=== PATIENT | male | born 1965 | race Caucasian/White ===

== ENCOUNTER 2018-08-02 02:53 | Emergency (ER) | payer OTHER ==
[~2018-08-02] VITALS: Ht 180.3 cm; Wt 92.1 kg
[~2018-08-02 02:53] MED LIST: ASPIR 8181 MG PO; COUMADIN 5 MG TA5 M1 PO; COZAAR 25 MG TA25 M2 PO; EFFIENT10 MG PO; LASIX 40 MG TAB40 M2 PO; LIPITOR40 MG PO; METOPROLOL TART25 MG PO; NITROGLYCERIN0.4 MG SUBLING; NORCO 5-325 TA1 EACH PO; PACERONE 200 M200 M1 PO; PROTONIX40 M4 PO
[2018-08-02] MEDS ORDERED: ASPIR 8181 MG PO (03:14)
[2018-08-02] MEDS ORDERED: TYLENOL325 MG PO (03:14)
[2018-08-02] MEDS ORDERED: LIPITOR80 MG PO (03:14)
[2018-08-02] MEDS ORDERED: FOLIC ACID1 MG PO (03:15)
[2018-08-02] MEDS ORDERED: CARVEDILOL3.125 MG PO (03:15)
[2018-08-02] MEDS ORDERED: ROBAXIN 750 MG750 M1 PO (03:16)
[2018-08-02] MEDS ORDERED: NITROGLYCERIN0.4 MG SUBLING (03:16)
[2018-08-02] MEDS ORDERED: SPIRONOLACTONE25 M1 PO (03:17)
[2018-08-02] MEDS ORDERED: OXYCODONE HCL 55 MG PO (03:17)
[2018-08-02] MEDS ORDERED: MIRALAX17 GM PO (03:17)
[2018-08-02] MEDS ORDERED: SENNA8.6 MG PO (03:17)
[2018-08-02] MEDS ORDERED: VITAMIN B-1100 M1 PO (03:18)
[2018-08-02 03:26] LABS: HEMATOCRIT 39.2 % (42.0-52.0); HEMOGLOBIN 13.1 gm/dL (14.0-18.0); MCHC 33.4 g/dL (28.0-37.0); MCV 92.8 fL (80.0-100.0); PLATELET COUNT 239 thou/uL (150-400); RBC 4.22 mil/uL (4.50-6.00); RDW 13.3 % (10.5-14.5); WBC 8.6 thou/uL (4.0-11.0)
[2018-08-02 03:31] LABS: ANION GAP 10 mmol/L (7-16); BUN 17 mg/dL (7-18); CALCIUM 8.8 mg/dL (8.5-10.1); CHLORIDE 105 mmol/L (98-107); CO2 27 mmol/L (21-32); CREATININE 0.9 mg/dL (0.7-1.3); GLUCOSE 121 mg/dL (74-106); POTASSIUM 4.2 mmol/L (3.5-5.1); SODIUM 142 mmol/L (136-145)
[2018-08-02 03:41] LABS: URINE BILIRUBIN NEGATIVE (Negative); URINE BLOOD NEGATIVE (Negative); URINE CLARITY CLEAR; URINE COLOR YELLOW; URINE GLUCOSE-RANDOM* NEGATIVE (Negative); URINE KETONES NEGATIVE (Negative); URINE LEUKOCYTES-REFLEX NEGATIVE (Negative); URINE NITRITE-REFLEX NEGATIVE (Negative); URINE PROTEIN (DIPSTICK) NEGATIVE (Negative); URINE SPECIFIC GRAVITY >= 1.030 (1.005-1.035); URINE UROBILINOGEN 0.2 E.U./dl (0.2-1.0)
[2018-08-02 03:42] LABS: ALBUMIN 3.2 g/dL (3.4-5.0); DIRECT BILIRUBIN < 0.1 mg/dL (<0.1-0.3); LIPASE 178 U/L (73-393); SGOT 28 U/L (15-37); SGPT 58 U/L (30-65); TOTAL BILIRUBIN 0.4 mg/dL (<0.1-1.0); TOTAL PROTEIN 6.4 g/dL (6.4-8.2); TROPONIN-I <0.06 ng/mL (<0.06)
[2018-08-02 03:52] LABS: AMP/METHAMP Negative (Negative); BARBITURATES Negative (Negative); BENZODIAZEPINES Negative (Negative); COCAINE Negative (Negative); METHADONE Negative (Negative); OPIATES POSITIVE (Negative); PCP Negative (Negative)
[2018-08-02 04:13] LABS: ABSOLUTE NEUTROPHILS 5.1 thou/uL (1.4-8.2)
[2018-08-02 04:15] LABS: PLATELET ESTIMATE NORMAL
[2018-08-02 05:56] VITALS: BP 112/67
--- NOTE | 2018-08-04 22:24 | EKG ---
[place] [address] [email or web address] [place] [address] ELECTROCARDIOGRAM REPORT Name: BRUCE BARRIOS [facility] [id number] ������������������ Admission: 08/02/18 ������������������ Attend Phys: Discharge: 08/02/18 ������������������ Date of : 69 Report #: [id number] ����������������������������������������������������������������� [id number] THIS REPORT FOR: //name// [facility] ED Test Date: 2018-08-02 Test Time: 03:01:02 Pat Name: BRUCE BARRIOS Department: Room: Gender: Cardiovascular Physician Assistant: [facility] : 1965 Requested By: Enriqueta Mcconnell Order Number: [id number] MD: Khoa Guy Measurements Intervals [place] Rate: 78 P: 67 MN: 203 QRS: -3 QRSD: 108 T: 175 QT: 360 QTc: 411 Interpretive Statements Sinus rhythm Borderline prolonged [place] interval Probable left atrial enlargement Incomplete left bundle branch block LVH with secondary repolarization abnormality Anterior ST elevation, probably due to LVH Electronically Signed On 08-04-2018 22:24:41 CDT by Khoa Guy [email or web address] ��������������������������������������������� <ELECTRONICALLY SIGNED> ���������������������������������������� By: Khoa Guy MD ��������������������������������������������� 08/04/184 0 0 Khoa Guy MD /JARRED
== END 2018-08-02 05:59 | disposition home or self-care (01) ==
LOC: ER 02:53
PROVIDERS: Emergency Medicine
DX: R07.89 Other chest pain (principal); F17.200 Nicotine dependence, unspecified, uncomplicated

== ENCOUNTER 2019-02-17 16:09 | Inpatient (IN) | payer OTHER ==
[~2019-02-17] VITALS: Ht 180.3 cm; Wt 103.4 kg
[~2019-02-17 16:09] MED LIST changes: +CARVEDILOL3.125 MG PO; +FOLIC ACID1 MG PO; +LIPITOR80 MG PO; +MIRALAX17 GM PO; +OXYCODONE HCL 55 MG PO; +ROBAXIN 750 MG750 M1 PO; +SENNA8.6 MG PO; +SPIRONOLACTONE25 M1 PO; +TYLENOL325 MG PO; +VITAMIN B-1100 M1 PO
[2019-02-17 16:47] VITALS: BP 134/89
[2019-02-17 16:56] LABS: ABSOLUTE NEUTROPHILS 6.4 thou/uL (1.4-8.2); BASOPHILS 0.3 % (0.0-2.0); EOSINOPHILS 2.8 % (0.0-3.0); HEMATOCRIT 46.9 % (42.0-52.0); HEMOGLOBIN 15.6 gm/dL (14.0-18.0); LYMPHOCYTES 22.1 % (24.0-44.0); MCH 30.8 pg (26.0-34.0); MCHC 33.2 g/dL (28.0-37.0); MCV 92.7 fL (80.0-100.0); MONOCYTES 7.8 % (1.0-8.0); PLATELET COUNT 230 thou/uL (150-400); RBC 5.06 mil/uL (4.50-6.00); RDW 14.2 % (10.5-14.5); WBC 9.5 thou/uL (4.0-11.0)
[2019-02-17 17:05] LABS: ANION GAP 9 mmol/L (7-16); BUN 13 mg/dL (7-18); CALCIUM 9.7 mg/dL (8.5-10.1); CHLORIDE 106 mmol/L (98-107); CO2 26 mmol/L (21-32); GLUCOSE 110 mg/dL (74-106); POTASSIUM 4.3 mmol/L (3.5-5.1); SODIUM 141 mmol/L (136-145)
[2019-02-17] MEDS ORDERED: COZAAR 25 MG TA25 M1 PO (17:09)
[2019-02-17 17:15] LABS: ALBUMIN 3.6 g/dL (3.4-5.0); SGOT 18 U/L (15-37); SGPT 28 U/L (30-65); TOTAL BILIRUBIN 1.5 mg/dL (<0.1-1.0); TOTAL PROTEIN 7.5 g/dL (6.4-8.2); TROPONIN-I <0.06 ng/mL (<0.06)
[2019-02-17 19:50] VITALS: BP 111/66
[2019-02-17 19:58] VITALS: BP 124/80
[2019-02-17 20:20] VITALS: BP 124/86
[2019-02-17] MEDS ORDERED: PRADAXA150 MG PO (22:53)
[2019-02-18] VITALS (14 sets, daily range): BP systolic 115–131; BP diastolic 62–97
[2019-02-18 00:57] LABS: CHOLESTEROL 261 mg/dL (<200); HDL CHOLESTEROL 36 mg/dL (>40); LDL CHOLESTEROL 193 mg/dL (<100); TC:HDL 7.3 Ratio (Not establshd); TRIGLYCERIDE 162 mg/dL (<150); VLDL 32 mg/dL (<40)
[2019-02-18 01:04] LABS: SERUM ASSESSMENT Clear
[2019-02-18 04:35] LABS: HEMATOCRIT 43.9 % (42.0-52.0); HEMOGLOBIN 14.5 gm/dL (14.0-18.0); MCH 30.7 pg (26.0-34.0); MCV 92.9 fL (80.0-100.0); RBC 4.73 mil/uL (4.50-6.00); RDW 14.3 % (10.5-14.5)
[2019-02-18 05:01] LABS: ANION GAP 10 mmol/L (7-16); BUN 11 mg/dL (7-18); CALCIUM 9.4 mg/dL (8.5-10.1); CHLORIDE 105 mmol/L (98-107); CO2 25 mmol/L (21-32); GLUCOSE 135 mg/dL (74-106); POTASSIUM 3.8 mmol/L (3.5-5.1); SODIUM 140 mmol/L (136-145); TROPONIN-I <0.06 ng/mL (<0.06)
--- NOTE | 2019-02-18 05:14 | NUR ---
PT ARRIVED ON UNIT AROUND 2014. PT ADMISSION AND ASSESSMENT CHARTED. PT C/O PRESSURE IN CHEST UPON MOVEMENT GAVE PAIN MEDICATION AND PARTIAL RELIEF PROVIDED. PT IS SLEEPING AND WILL CONTINUE TO MONITOR PER POC.
--- NOTE | 2019-02-18 08:40 | EKG ---
[address] [address] ELECTROCARDIOGRAM REPORT Name: BRUCE BARRIOS Room #: 215-P ADM IN M.R.#: [id number] Admission: 02/17/19 Attend Phys: Perez Howell MD Discharge: Date of : 69 Report #: [id number] THIS REPORT FOR: //name// [facility] ED Test Date: 2019-02-17 Test Time: 18:31:20 Pat Name: BRUCE BARRIOS Department: Room: 215 Gender: M Machine Engineer: north : 1965 Requested By: Ross Peraza Order Number: [id number] MD: Khoa Guy Measurements Intervals [place] Rate: 84 P: 66 PA: 212 QRS: -61 QRSD: 117 T: 127 QT: 386 QTc: 457 Interpretive Statements Sinus rhythm Prolonged PA interval Left atrial enlargement Incomplete left bundle branch block LVH with secondary repolarization abnormality Compared to ECG 08/02/2018 03:01:02 ST (T wave) deviation no longer present Electronically Signed On 02-18-2019 8:39:51 INDUSTRIAL ANALYST by Khoa Guy [email or web address] <ELECTRONICALLY SIGNED> By: Khoa Guy MD 02/18/19 0839 30 30 Khoa Guy MD /EPI
--- NOTE | 2019-02-18 08:43 | EKG ---
[address] [place] [address] ELECTROCARDIOGRAM REPORT Name: SOPHIEBRUCE Chavez Room #: 215-P ADM IN M.R.#: [id number] Admission: 02/17/19 Attend Phys: Perez Howell MD Discharge: Date of : 69 Report #: [id number] THIS REPORT FOR: //name// [facility] ED Test Date: 2019-02-17 Test Time: 16:12:40 Pat Name: BRUCE BARRIOS Department: Room: 215 Gender: M Electronics Processor: jacobo : 1965 Requested By: Abisai Arguelles Order Number: [id number] MD: Khoa Guy Measurements Intervals [place] Rate: 91 P: 67 VT: 224 QRS: -49 QRSD: 117 T: 135 QT: 373 QTc: 459 Interpretive Statements Sinus rhythm Multiple ventricular premature complexes Prolonged [place] interval Left atrial enlargement Incomplete left bundle branch block LVH with secondary repolarization abnormality Anterior ST elevation, probably due to LVH Compared to ECG 08/02/2018 03:01:02 Ventricular premature complex(es) now present ST (T wave) deviation still present Electronically Signed On 02-18-2019 8:42:47 HAMMER MILL OPERATOR by Khoa Guy [email or web address] <ELECTRONICALLY SIGNED> By: Khoa Guy MD 02/18/19 0842 161 161 Khoa Guy MD /EPI
--- NOTE | 2019-02-18 10:07 | 2DMMODE ---
[facility] [address] [place] [address] 2 D/M-MODE ECHOCARDIOGRAM Name: BRUCE BARRIOS Room #: 215-P ADM IN M.R.#: [id number] Admission: 02/17/19 Attend Phys: Perez Howell MD Discharge: Date of : 69 Report #: [id number] THIS REPORT FOR: //name// APPROVED REPORT Study performed: 02/18/2019 09:28:32 EXAM: Comprehensive 2D, Doppler, and color-flow Echocardiogram Patient Location: Echo lab Room #: [facility] Status: routine BSA: 2.21 HR: 99 bpm BP: 115/80 mmHg Rhythm: Tachycardia Other Information Study Quality: Good Indications CAD Cardiomyopathy Chest Pain 2D Dimensions RVDd: 34.96 mm IVSd: 5.23 (7-11mm) LVOT Diam: 23.57 (18-24mm) LVDd: 64.87 mm PWd: 11.29 (7-11mm) Ascending Ao: 31.97 (22-36mm) LVDs: 58.03 (25-40mm) Aortic Root: 32.39 mm IVC: 15.00 mm Volumes Left Atrial Volume (Systole) Single Plane 4CH: 101.62 mL Single Plane 2CH: 76.65 mL LA ESV Index: 44.00 mL/m2 Aortic Valve AoV Peak Dale.: 1.04 m/s AO Peak Gr.: 4.34 mmHg LVOT Max P.52 mmHg LVOT Max V: 0.94 m/s AMINTA Vmax: 3.93 cm2 Pulmonary Valve PV Peak Dale.: 0.73 m/s PV Peak Gr.: 2.16 mmHg [facility] [address] [place] [address] 2 D/M-MODE ECHOCARDIOGRAM Name: BRUCE BARRIOS Room #: 215-P ADM IN [facility].#: [id number] Admission: 02/17/19 Attend Phys: Perez Howell MD Discharge: Date of : 69 Report #: [id number] Left Ventricle Left ventricle is dilated. There is severe global hypokinesis of the left ventricle. There is normal left ventricular wall thickness. Left ventricular ejection fraction is severely decreased. LVEF is 20-25%. Grade IV - fixed restrictive diastolic dysfunction pattern. Right Ventricle The right ventricle is normal size. The right ventricular systolic function is normal. Atria Left atrium is dilated. Right atrium is at the upper limits of normal. Aortic Valve The aortic valve is normal in structure. No aortic regurgitation is present. There is no aortic valvular stenosis. Mitral Valve The mitral valve is normal in structure. Mild mitral regurgitation. No evidence of mitral valve stenosis. Tricuspid Valve The tricuspid valve is normal in structure. There is no tricuspid valve regurgitation noted. Pulmonic Valve The pulmonary valve is normal in structure. There is no pulmonic valvular regurgitation. Great Vessels The aortic root is normal in size. IVC is normal in size and collapses >50% with inspiration. Pericardium There is no pericardial effusion. <Conclusion> Left ventricle is dilated. There is normal left ventricular wall thickness. Left ventricular ejection fraction is severely decreased. Grade IV - fixed restrictive diastolic dysfunction pattern. The right ventricle is normal size. Left atrium is dilated. [facility] [address] [place] [address] 2 D/M-MODE ECHOCARDIOGRAM Name: BRUCE BARRIOS Room #: 215-P [facility] IN ..#: [id number] Admission: 02/17/19 Attend Phys: Perez Howell MD Discharge: Date of : 69 Report #: [id number] The aortic valve is normal in structure. Mild mitral regurgitation. <ELECTRONICALLY SIGNED> By: Caleb Shah MD 02/18/19 1007 1007 1007 Caleb Shah MD /INF
[2019-02-18 15:43] LABS: AMP/METHAMP POSITIVE (Negative); BARBITURATES Negative (Negative); BENZODIAZEPINES Negative (Negative); COCAINE Negative (Negative); METHADONE Negative (Negative); OPIATES POSITIVE (Negative); PCP Negative (Negative)
--- NOTE | 2019-02-18 16:35 | CATHLAB ---
[place] [address] [employer] [facility] [place] [address] INVASIVE PROCEDURE REPORT Name: BRUCE BARRIOS Room #: 215-P [facility] IN ..#: [id number] Admission: 02/17/19 Attend Phys: Perez Howell MD Discharge: Date of : 69 Report #: [id number] THIS REPORT FOR: //name// APPROVED REPORT Study performed: 02/18/2019 11:47:49 Patient Details Patient Status: In-Patient Room #: The patient is a 54 year-old male Event Personnel Caleb Shah Acquisition Specialist, Bryan Gannon RN, Camryn Stokes RN RN, Bruce Lambert, Huseyin Torres RTR Scrub Procedures Performed Left Heart Cath w/or w/o Coronaries [id number] [facility] Indication Dyspnea, Cardiomyopathy, Chest pain Risk Factors Hypercholesterolemia, Coronary Artery DiseaseHypertension, Diabetes Tobacco History () Previous Procedures/Diagnoses Previous PCI, Previous NH Procedure Narrative The Right Groin^ was infiltrated with 1% Lidocaine subcutaneous anesthesia. A PINNACLE 4FR Sheath #[id number] sheath was inserted into the RFA^. Coronary angiography was performed using coronary diagnostic catheters. The right coronary system was accessed and visualized with a JR4 catheter. The left coronary system was accessed and visualized with a JL4 catheter. Left ventricular/Aortic Valve gradient assessed via catheter pullback. Hemostasis was obtained with manual pressure following sheath removal without any complications. There was no hematoma. Intraoperative Conscious Sedation Sedation start time: 12.34 Case end Time: 13.05 Fluoro Time: 3.40 minutes [facility] [address] [place] [address] INVASIVE PROCEDURE REPORT Name: BRUCE BARRIOS Room #: 215-P [facility] IN ..#: [id number] Admission: 02/17/19 Attend Phys: Perez Howell MD Discharge: Date of : 69 Report #: [id number] Dose: DAP 4927.00 cGycm2 1276 mGy Contrast Type and Amount: Omnipaque 45 ml Coronary Angiography The patient's coronary anatomy is right dominant. Diagnostic Cath Left Main This is a large caliber vessel, patent with no flow-limiting lesions. LAD This is a moderate size caliber vessel, traversing the anterior wall and wrapping around the apex. There is a patent stent in the proximal LAD, with mild restenosis. There is mild disease in the mid segment of the LAD, 20%. Diagonal 1 This is a small to moderate size caliber vessel, with mild disease at the ostium. Diagonal 2 This is a small to moderate size caliber vessel, with mild disease at the ostium. Circumflex There is a patent stent in the proximal segment with mild restenosis. OM1 This is a small-caliber vessel, with mild disease proximally. OM2 This is a moderate size caliber vessel, patent with no flow-limiting lesions. Right Coronary This is a dominant vessel with mild disease in the proximal segment, 20%. R PDA This is a moderate size caliber vessel, patent with no flow-limiting lesions. RPLV This is a moderate size caliber vessel, patent with no flow-limiting lesions. Left Ventriculography Left Ventriculography was not performed. Ejection Fraction was 20-25% based off patient's Echocardiogram. An LVEDP was measured and there is no gradient across the outflow tract. Hemodynamics The aortic pressure is 131/96 mmHg with a mean of 96 mmHg. The left ventricular pressure is 134/25 mmHg with a mean of mmHg. The left ventricular end diastolic pressure is 43 mmHg. There was no gradient across the aortic valve upon pullback. Pullback from the left ventricle to the aorta revealed no gradient across the aortic valve. Conclusion 1. There are patent stents in the proximal LAD and proximal left circumflex arteries. [facility] [address] [place] [address] INVASIVE PROCEDURE REPORT Name: BRUCE BARRIOS Scott Room #: 215-P [facility] IN M.R.#: [id number] Admission: 02/17/19 Attend Phys: Perez Howell MD Discharge: Date of : 69 Report #: [id number] 2. Right dominant system. 3. History of severe ischemic cardiomyopathy. 4. Recommend guideline directed medical therapy and aggressive risk factor management. <ELECTRONICALLY SIGNED> By: Caleb Shah MD 02/18/19 1635 34 Caleb Shah MD /INF
--- NOTE | 2019-02-18 18:24 | NUR ---
ASSUMMED PT CARE AT APPROXIMATELY 0700. PT A&O X4. ASSESSMENT CHARTED. FALL PRECAUTIONS IN PLACE. PT HAD CHEST PAIN IN THE MORNING. PT RECEIVED ANALGESICS AND STATED CHEST PAIN DECREASED AFTER HAVING ANALGESICS. PT DENIES HAVING CARDIAC PAIN CURRENTLY. PT HAD A CATH PROCEDURE TODAY. PT HAD NON INTERVENTIONAL CATH PROCEDURE. NOTIFIED. ORDERED NEW MEDS. MEDS IMPLEMENTED. PT STATED HE FELT SOB. O2 SATS STABLE. APPLIED 1 L O2 NC FOR COMFORT. PT DENIES HAVING SOB. PT STATED HE HAD R SHOULDER PAIN. PT RECEIVED ANALGESICS. PT HAD X-RAY. NOTIFIED DR OF X-RAY RESULTS. STATED PT WOULD BE ABLE TO DISCHARGE TONIGHT. PT DISCHARGING HOME C SELF CARE. IV DC. TELE DC. R GROIN C/D/I. NO HEMATOMA PRESENT. VITAL SIGNS STABLE. BLOOD SUGARS STABLE. PT AND PT'S FAMILY RECEIVED DISCHARGE EDUCATION. PT AND PT'S FAMILY STATED UNDERSTANDING AND DENIED HAVING FURTHER QUESTIONS. PT TRANSPORTING OFF UNIT C HOSPITAL TRANSPORT.
--- NOTE | 2019-02-19 08:33 | EKG ---
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: Ramón HAGER : 1965 Requested By: Perez Howell Order Number: [id number] MD: Khoa Guy Measurements Intervals [place] Rate: 96 P: 59 TX: 200 QRS: -54 QRSD: 115 T: 120 QT: 360 QTc: 455 Interpretive Statements Sinus rhythm Borderline prolonged [place] interval Left atrial enlargement Incomplete left bundle branch block LVH with secondary repolarization abnormality Anterior Q waves, possibly due to LVH Compared to ECG 02/17/2019 18:31:20 Q waves now present Electronically Signed On 02-19-2019 8:33:38 TUB CHUCKER by Khoa Guy [email or web address] <ELECTRONICALLY SIGNED> By: Khoa Guy MD 02/19/19 0833 1048 1048 Khoa Guy MD /EPI
== END 2019-02-18 19:32 | disposition home or self-care (01) | DRG 287 ==
LOC: ER 16:09 → 2N 18:34 → EROBS 18:34 → 2N 19:59
PROVIDERS: Nurse Practitioner Acute Care; Physician Assistant; ADMIT Hospitalist
PROC: B2111ZZ Fluoroscopy of Multiple Coronary Arteries using Low Osmolar Contrast (ICD-10-PCS; principal; 2019-02-18)
PROC: 4A023N7 Measurement of Cardiac Sampling and Pressure, Left Heart, Percutaneous Approach (ICD-10-PCS; principal; 2019-02-18)
DX: R07.89 Other chest pain (principal); I25.5 Ischemic cardiomyopathy; E78.00 Pure hypercholesterolemia, unspecified; I25.10 Atherosclerotic heart disease of native coronary artery without angina pectoris; Z60.2 Problems related to living alone; I48.91 Unspecified atrial fibrillation; F17.210 Nicotine dependence, cigarettes, uncomplicated; E78.5 Hyperlipidemia, unspecified; I10 Essential (primary) hypertension; Z79.899 Other long term (current) drug therapy; I25.2 Old myocardial infarction; Z95.5 Presence of coronary angioplasty implant and graft; Z71.6 Tobacco abuse counseling; Z95.810 Presence of automatic (implantable) cardiac defibrillator; Z79.82 Long term (current) use of aspirin
CPT/HCPCS: 10081

== ENCOUNTER 2019-04-04 18:11 | Inpatient (IN) | payer OTHER ==
[~2019-04-04] VITALS: Ht 180.3 cm; Wt 105.7 kg
[~2019-04-04 18:11] MED LIST changes: +COZAAR 25 MG TA25 M1 PO; +PRADAXA150 MG PO
[2019-04-04 18:12] VITALS: BP 121/79
[2019-04-04 18:41] LABS: ABSOLUTE NEUTROPHILS 8.3 thou/uL (1.4-8.2); BASOPHILS 0.2 % (0.0-2.0); EOSINOPHILS 1.8 % (0.0-3.0); HEMATOCRIT 43.7 % (42.0-52.0); HEMOGLOBIN 14.4 gm/dL (14.0-18.0); LYMPHOCYTES 15.4 % (24.0-44.0); MCH 30.7 pg (26.0-34.0); MCHC 32.9 g/dL (28.0-37.0); MCV 93.5 fL (80.0-100.0); MONOCYTES 10.5 % (1.0-8.0); PLATELET COUNT 294 thou/uL (150-400); POLYS 72.1 % (36.0-66.0); RBC 4.68 mil/uL (4.50-6.00); RDW 15.1 % (10.5-14.5); WBC 11.5 thou/uL (4.0-11.0)
[2019-04-04 18:47] LABS: ANION GAP 9 mmol/L (7-16); BUN 26 mg/dL (7-18); CALCIUM 9.6 mg/dL (8.5-10.1); CHLORIDE 103 mmol/L (98-107); CO2 25 mmol/L (21-32); CREATININE 1.9 mg/dL (0.7-1.3); GLUCOSE 108 mg/dL (74-106); POTASSIUM 4.8 mmol/L (3.5-5.1); SODIUM 137 mmol/L (136-145)
[2019-04-04 18:57] LABS: ALBUMIN 3.2 g/dL (3.4-5.0); SGOT 18 U/L (15-37); SGPT 25 U/L (30-65); TOTAL PROTEIN 7.6 g/dL (6.4-8.2); TROPONIN-I <0.06 ng/mL (<0.06)
[2019-04-04 20:01] LABS: AMP/METHAMP Negative (Negative); BARBITURATES Negative (Negative); BENZODIAZEPINES Negative (Negative); COCAINE Negative (Negative); METHADONE Negative (Negative); OPIATES Negative (Negative); PCP Negative (Negative)
[2019-04-04 20:10] VITALS: BP 108/68
[2019-04-04 20:59] VITALS: BP 105/55
[2019-04-04 21:36] LABS: URINE BILIRUBIN NEGATIVE (Negative); URINE BLOOD 3+ (Negative); URINE CLARITY CLEAR; URINE COLOR YELLOW; URINE GLUCOSE-RANDOM* NEGATIVE (Negative); URINE KETONES NEGATIVE (Negative); URINE LEUKOCYTES-REFLEX NEGATIVE (Negative); URINE NITRITE-REFLEX NEGATIVE (Negative); URINE PROTEIN (DIPSTICK) NEGATIVE (Negative); URINE UROBILINOGEN 0.2 E.U./dl (0.2-1.0)
[2019-04-04 21:43] LABS: CALCIUM 9.6 mg/dL (8.5-10.1); POTASSIUM 4.8 mmol/L (3.5-5.1)
[2019-04-04 21:47] LABS: ALBUMIN 3.2 g/dL (3.4-5.0); TOTAL BILIRUBIN 1.1 mg/dL (<0.1-1.0); TOTAL PROTEIN 7.6 g/dL (6.4-8.2)
[2019-04-04 21:54] LABS: MUCUS 4-6 Moderate strn/LPF (None Seen); SQUAMOUS 0-3 Few /LPF (0-3); URINE WBC-REFLEX 6-15 Few /HPF (0-5); WBC CASTS 0-3 Few /LPF (None Seen)
[2019-04-04 21:55] LABS: BACTERIA-REFLEX None Seen /HPF (None Seen); CRYSTALS None Seen /LPF (None Seen); URINE RBC 3-10 Few /HPF (0-2)
[2019-04-04 22:00] VITALS: BP 120/71
[2019-04-04 23:40] VITALS: BP 115/82
--- NOTE | 2019-04-05 01:10 | NUR ---
PT ARRIVED ON UNIT AROUND 0 WITH SON AT BEDSIDE. PT HAD NO C/O PAIN, CP, N/V/D, OR BEING SOA. PT VSS AND PT OXYGEN SATURATION WAS 99% ON ROOM AIR. PT CONSENTS, MEDICATION, AND ADMISSION ASSESSMENTS ARE CHARTED. PT WAS STEADY ON FEET AND UP ADLIB TO RESTROOM. PT SEEN BY HOSPITALIST AND ORDERS PROVIDED. PT STARTED ON ANTIBIOTICS. PT RESTED THRU NIGHT WITH CARES BEING GROUPED TOGETHER. WILL CONTINUE TO MONITOR PT PER PLAN OF CARE.
[2019-04-05 04:09] LABS: CALCIUM 9.5 mg/dL (8.5-10.1); CREATININE 1.9 mg/dL (0.7-1.3)
[2019-04-05 04:26] LABS: POTASSIUM 3.8 mmol/L (3.5-5.1)
[2019-04-05 04:47] LABS: HEMATOCRIT 42.4 % (42.0-52.0); HEMOGLOBIN 13.9 gm/dL (14.0-18.0); MCH 30.7 pg (26.0-34.0); MCHC 32.8 g/dL (28.0-37.0); MCV 93.7 fL (80.0-100.0); RBC 4.53 mil/uL (4.50-6.00); RDW 14.9 % (10.5-14.5); WBC 10.1 thou/uL (4.0-11.0)
[2019-04-05 05:00] VITALS: BP 126/83
[2019-04-05 07:31] VITALS: BP 118/82
[2019-04-05 13:00] VITALS: BP 98/66
--- NOTE | 2019-04-05 16:32 | NUR ---
ASSESSMENT CHARTED. PT ALERT AND ORIENTED. VSS. RECEIVED PRN PAIN MED WITH PARTIAL RELIEF. RT TREATMENT GIVEN ORDERED. NO RESPIRATORY OR CARDIAC DISTRESS NOTED. WILL CONTINUE TO MONITOR.
[2019-04-05 17:56] VITALS: BP 118/81
[2019-04-05 19:06] VITALS: BP 114/78
--- NOTE | 2019-04-06 00:16 | NUR ---
ASSUMED PT CARE AROUND 1900. PT VSS WITH NO C/O PAIN, N/V/D, OR SOA. PT IS UP AD CHRISTINA. PT MEDICATIONS GIVEN PER ORDERS. PT LATER C/O OF SOA, REC'D BREATHING TREATMENTS AND STATES "IT DIDN'T HELP" OXYGENATION LEVELS REMAINED STEADY AT 95% OR BETTER. ORDERED COUGH DROPS TO ASSIST PATIENT WITH COUGHING. WILL CONTINUE TO MONITOR PT PER PLAN OF CARE AND MAINTAINING SAFE OXYGENATION LEVELS.
[2019-04-06 04:05] VITALS: BP 141/86
[2019-04-06 08:54] VITALS: BP 144/92
[2019-04-06 15:45] VITALS: BP 119/84
--- NOTE | 2019-04-06 16:53 | NUR ---
ASSESSMENT CHARTED. PT ALERT AND ORIENTED. VSS. AMBULATED X3 IN THE HALLWAY THIS SHIFT. IV ABX AND RESPIRATORY TREATMENT GIVEN ORDERED. WILL CONTINUE TO MONITOR.
[2019-04-06 19:50] VITALS: BP 126/88
[2019-04-07 04:05] VITALS: BP 116/71
--- NOTE | 2019-04-07 04:45 | NUR ---
ASSUMED PT CARE AROUND 1914. PT WAS RESTING ON COUCH. PT VSS WITH NO C/O PAIN, N/V/D, OR CHEST PAINS. PT DID C/O SOA. PT DOES NOT WANT TO SLEEP IN BED AND STATES "IT IS TOO UNCOMFORTABLE". ADVISED PT TO SIT UPRIGHT AND TAKE SLOW DEEP BREATHS. PT WAS SEEN AND PROVIDED BREATHING TREATMENT. AROUND 299 PT WANTED TO BE DISCONNECTED FROM IV ANTIBIOTICS AND STATED "THIS MEDICATION IS WHATS MAKING IT HARD FOR ME TO BREATHE AND I'LL TALK WITH THE DOCTORS TOMORROW ABOUT THIS". REMOVED THE IV FROM PT AND HE HAS BEEN RESTING ON COUCH WITH MINIMAL INTERRUPTIONS. WILL CONTINUE TO MONITOR PT FOR AIR HUNGAR AND ANY SIGNS OF DISTRESS.
[2019-04-07 04:58] LABS: ABSOLUTE NEUTROPHILS 6.9 thou/uL (1.4-8.2); BASOPHILS 1.4 % (0.0-2.0); EOSINOPHILS 2.7 % (0.0-3.0); HEMATOCRIT 42.1 % (42.0-52.0); HEMOGLOBIN 13.5 gm/dL (14.0-18.0); LYMPHOCYTES 17.5 % (24.0-44.0); MCH 30.3 pg (26.0-34.0); MCV 94.8 fL (80.0-100.0); MONOCYTES 8.5 % (1.0-8.0); PLATELET COUNT 349 thou/uL (150-400); POLYS 69.9 % (36.0-66.0); RBC 4.44 mil/uL (4.50-6.00); RDW 15.2 % (10.5-14.5); WBC 9.8 thou/uL (4.0-11.0)
[2019-04-07 08:00] VITALS: BP 114/69
--- NOTE | 2019-04-07 14:47 | EKG ---
[address] [place] [address] ELECTROCARDIOGRAM REPORT Name: BRUCE BARRIOS Room #: 210-P ADM IN M.R.#: [id number] Admission: 04/04/19 Attend Phys: Aj Cárdenas MD Discharge: Date of : 69 Report #: [id number] THIS REPORT FOR: //name// [facility] ED Test Date: 2019-04-04 Test Time: 18:17:21 Pat Name: BRUCE BARRIOS Department: Room: 210 Gender: M Java Security Architect: СВЕТЛАНА : 1965 Requested By: Lauren Hodgson Order Number: [id number] MD: Khoa Guy Measurements Intervals [place] Rate: 101 P: 66 SD: 196 QRS: -67 QRSD: 111 T: 117 QT: 359 QTc: 466 Interpretive Statements Sinus tachycardia Biatrial enlargement Left anterior fascicular block Abnormal R-wave progression, late transition LVH with secondary repolarization abnormality Compared to ECG 02/18/2019 10:48:30 Electronically Signed On 04-07-2019 14:46:45 AUTOMOTIVE PARTS SPECIALIST by Khoa Guy [email or web address] <ELECTRONICALLY SIGNED> By: Khoa Guy MD 04/07/19 1446 16 16 Khoa Guy MD /EPI
--- NOTE | 2019-04-07 15:41 | NUR ---
ORDERS RECEIVED FOR PT EVAL AND TREAT. MET WITH Pt IN ROOM AFTER RETURNING FROM XRAY. Pt HAS BEEN SEEN BY THIS PT AMBULATING IN HALLWAYS PUSHING IV POLE SEVERAL TIMES TODAY. Pt LIVES WITH HIS MOTHER IN HOME WITHOUT STAIRS. INDEP WITH ADLs. NO USE OF ASSISTIVE DEVICES. DENIED RECENT FALLS. Pt HAS A SIGNIFICANT CARDIAC HISTORY FOR AGE. Pt DECLINED NEED FOR PT SERVICES AT THIS TIME. CONFIRMED WITH RN AND EMR NOTES THAT Pt HAS BEEN UP AD CHRISTINA W/O DIFFICULTY. ACUTE PT TO SIGN OFF.
[2019-04-07 16:00] VITALS: BP 144/85
--- NOTE | 2019-04-07 16:35 | NUR ---
ASSESSMENT CHARTED. PT ALERT AND ORIENTED. VSS. AMBULATED NUMEROUS TIMES IN THE HALLWAY. IV ABX GIVEN. NO CONCERNS AT THIS TIME WILL CONTINUE TO MONITOR.
[2019-04-07 19:29] VITALS: BP 126/87
[2019-04-08 03:40] VITALS: BP 114/72
--- NOTE | 2019-04-08 06:02 | NUR ---
PT RESTLESS THRU THE NOC BACK AND FORTH FROM BED TO COUCH, DENIES PAIN, VSS, REMAINS ON RA, NPC, UP ADLIB WALKING IN [place], WILL CON'T TO MONITOR PER PPOC.
[2019-04-08 08:00] VITALS: BP 152/90
[2019-04-08 09:42] LABS: CALCIUM 9.8 mg/dL (8.5-10.1); CREATININE 1.8 mg/dL (0.7-1.3); POTASSIUM 4.2 mmol/L (3.5-5.1)
[2019-04-08] MEDS ORDERED: MUCINEX600 MG PO (12:55)
[2019-04-08] MEDS ORDERED: AUGMENTIN 875-1 EACH PO (12:55)
[2019-04-08] MEDS ORDERED: CEPACOL SORE T1 EAC7 PO (12:55)
[2019-04-08] MEDS ORDERED: ACETAMINOPHEN325 M1 PO (12:55)
[2019-04-08] MEDS ORDERED: LEVAQUIN 750 M750 MG PO (12:55)
[2019-04-08 14:03] VITALS: BP 152/90
--- NOTE | 2019-04-08 15:43 | NUR ---
ASSUMMED PT CARE AT APPROXIMATELY 0700. PT A&O X4. ASSESSMENT CHARTED. FALL PRECAUTIONS IN PLACE. PT DENIES HAVING CHEST PAIN. PT DENIES HAVING SOB. PT DENIES HAVING ACUTE PAIN. PT DISCHARGING HOME C SELF CARE. PT AND PT'S FAMILY EDUCATED ABOUT POC. PT AND PT'S FAMILY STATED UNDERSTANDING AND DENIED HAVING FURTHER QUESTIONS. PT RECIEVED DISHCARGE EDUCATION. PT STATED UNDERSTANDING AND DENIED HAVING FURTHER QUESTIONS. VITAL SIGNS STABLE. PT AMBULATES STEADY/INDEPENDENT. IV DC. TELE DC. PT RECIEVING MEDICAL TRANSPORT TO TRANSPORT OFF UNIT. PT COMFORTABLE. PT DENIES HAVING FURTHER CONCERNS.
== END 2019-04-08 16:34 | disposition home or self-care (01) | DRG 871 ==
LOC: ER 18:11 → EROBS 20:12 → 2N 20:12 → ENTRNSPT 04-08 16:14 → 2N 04-08 16:34
PROVIDERS: Nurse Practitioner; Nurse Practitioner Family; Physician Assistant; ADMIT Internal Medicine
DX: A41.9 Sepsis, unspecified organism (principal); J18.9 Pneumonia, unspecified organism; N17.9 Acute kidney failure, unspecified; I50.42 Chronic combined systolic (congestive) and diastolic (congestive) heart failure; I42.9 Cardiomyopathy, unspecified; I13.0 Hypertensive heart and chronic kidney disease with heart failure and stage 1 through stage 4 chronic kidney disease, or unspecified chronic kidney disease; I25.10 Atherosclerotic heart disease of native coronary artery without angina pectoris; F15.11 Other stimulant abuse, in remission; E78.5 Hyperlipidemia, unspecified; R73.03 Prediabetes; I48.0 Paroxysmal atrial fibrillation; N18.9 Chronic kidney disease, unspecified; E86.0 Dehydration; F17.210 Nicotine dependence, cigarettes, uncomplicated; Z95.5 Presence of coronary angioplasty implant and graft; Z79.01 Long term (current) use of anticoagulants; Z86.718 Personal history of other venous thrombosis and embolism; I25.2 Old myocardial infarction; Z95.810 Presence of automatic (implantable) cardiac defibrillator; Z79.899 Other long term (current) drug therapy
CPT/HCPCS: 10081

== ENCOUNTER 2019-04-14 09:50 | Inpatient (IN) | payer OTHER ==
[~2019-04-14] VITALS: Ht 180.3 cm; Wt 98.9 kg
[~2019-04-14 09:50] MED LIST changes: +ACETAMINOPHEN325 M1 PO; +AUGMENTIN 875-1 EACH PO; +CEPACOL SORE T1 EAC7 PO; +LEVAQUIN 750 M750 MG PO; +MUCINEX600 MG PO
[2019-04-14 10:21] LABS: ABSOLUTE NEUTROPHILS 8.1 thou/uL (1.4-8.2); BASOPHILS 1.2 % (0.0-2.0); EOSINOPHILS 2.5 % (0.0-3.0); HEMATOCRIT 43.5 % (42.0-52.0); HEMOGLOBIN 13.8 gm/dL (14.0-18.0); MCH 30.1 pg (26.0-34.0); MCHC 31.7 g/dL (28.0-37.0); MCV 94.8 fL (80.0-100.0); MONOCYTES 7.1 % (1.0-8.0); PLATELET COUNT 347 thou/uL (150-400); POLYS 74.2 % (36.0-66.0); RBC 4.59 mil/uL (4.50-6.00); RDW 15.5 % (10.5-14.5); WBC 10.9 thou/uL (4.0-11.0)
[2019-04-14 10:22] LABS: CALCIUM 8.9 mg/dL (8.5-10.1); CREATININE 1.3 mg/dL (0.7-1.3); POTASSIUM 4.3 mmol/L (3.5-5.1)
[2019-04-14 10:32] LABS: ALBUMIN 3.4 g/dL (3.4-5.0); MAGNESIUM 1.6 mg/dL (1.8-2.4); TOTAL BILIRUBIN 0.8 mg/dL (<0.1-1.0); TROPONIN-I 0.18 ng/mL (<0.06)
[2019-04-14 10:43] LABS: APTT 28.9 Seconds (24.5-32.8); INR 1.2
[2019-04-14 10:48] LABS: BE(vivo) -4.6 mmol/L (-2 to +3); PCO2 27.4 mmHg (35.0-45.0); PO2 111.6 mmHg (80.0-100.0); pH 7.436 (7.360-7.450); sO2 98.3 % (92.0-98.0)
[2019-04-14 11:13] VITALS: BP 121/89
[2019-04-14 11:44] LABS: AMP/METHAMP POSITIVE (Negative); BARBITURATES Negative (Negative); BENZODIAZEPINES Negative (Negative); COCAINE Negative (Negative); METHADONE Negative (Negative); OPIATES POSITIVE (Negative); PCP Negative (Negative)
[2019-04-14 12:18] VITALS: BP 128/89
[2019-04-14 13:20] VITALS: BP 124/89
--- NOTE | 2019-04-14 15:27 | EKG ---
[place] [address] [address] [facility] [place] [address] ELECTROCARDIOGRAM REPORT Name: BRUCE BARRIOS Room #: 219-P ADM IN M.R.#: [id number] Admission: 04/14/19 Attend Phys: Perez Howell MD Discharge: Date of : 69 Report #: [id number] THIS REPORT FOR: //name// [facility] ED Test Date: 2019-04-14 Test Time: 09:55:17 Pat Name: BRUCE BARRIOS Department: Room: 219 Gender: M Construction Estimator: EVE : 1965 Requested By: Ajay Carrasquillo Order Number: [id number] MD: Khoa Guy Measurements Intervals [place] Rate: 97 P: 59 AL: 197 QRS: -67 QRSD: 118 T: 111 QT: 366 QTc: 465 Interpretive Statements Sinus rhythm Borderline prolonged [place] interval Left atrial enlargement Incomplete left bundle branch block LVH with secondary repolarization abnormality Anterior Q waves, possibly due to LVH Compared to ECG 04/04/2019 18:17:21 Left bundle-branch block now present Q waves now present Sinus tachycardia no longer present Left anterior fascicular block no longer present Electronically Signed On 04-14-2019 15:26:27 ELECTROPLATER HELPER by Khoa Guy [email or web address] <ELECTRONICALLY SIGNED> By: Khoa Guy MD 04/14/19 1526 0955 Khoa Guy MD /EPI
--- NOTE | 2019-04-14 15:33 | NUR ---
PT ARRIVED TO UNIT AT APPROX 1230 FROM ER BY ER STAFF. PT ALERT AND ORIENTED. VSS. O2 SATS WNL ON ROOM AIR. ADMISSION COMPLETE. CONSENTS SIGNED. TELE STRIP PRINTED AND DOCUMENTED. PT C/O 06/26 CP-- MANAGED WITH IV PAIN MEDS. EX IN ROOM. DENIES NEEDS AT THIS TIME. CONTINUING TO MONITOR.
[2019-04-14 17:27] VITALS: BP 141/97
[2019-04-14 20:20] VITALS: BP 109/59
[2019-04-15 00:12] VITALS: BP 117/69
[2019-04-15 04:00] VITALS: BP 95/51
[2019-04-15 04:10] LABS: CALCIUM 8.9 mg/dL (8.5-10.1); CREATININE 1.3 mg/dL (0.7-1.3); MAGNESIUM 1.7 mg/dL (1.8-2.4)
--- NOTE | 2019-04-15 04:36 | NUR ---
ASSESSMENT DOCUMENTED.PT BEEN RESTINNG IN NO ACUTE DISTRESS.A/OX4,VSS.ON RA W/O RESP DISTRESS.C/O CHEST PAIN AT THE BEGINNING OF THE SHIFT THAT WAS CONTROLLED WITH MORPHINE OTHEWIWSE NO ANY OTHER CONCERNS THIS SHIFT.UP AD CHRISTINA TO BR,VOIDING ADEQUATELY.NPO AFTER THE MIDNIGHT.DENIES ANY NEEDS AT THIS TIME.WILL CONT TO MONITOR PER POC.
[2019-04-15 08:00] VITALS: BP 121/80
[2019-04-15 11:00] VITALS: BP 122/77
--- NOTE | 2019-04-15 12:38 | NUR ---
ASSUMED CARE AT 0700, SHIFT ASSESSMENT DONE, MEDS GIVEN, VSS. DENIES PAIN, NAUSEA, VOMITING. NSR ON TELE, ROOM AIR. NO PROCEDURES TO BE SCHEDULED WITH CARDIOLOGY. WILL CONTINUE TO ASSESS AND ASSIST WITH ADLs NEEDED.
--- NOTE | 2019-04-15 14:52 | NUR ---
rec consult substance abuse resources. Met with patient family at bedside. Patient reports PCP Dr Jin at [facility]. 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 Patient reports retired and plans home independently. He has health insurance. Family at bedside ritesh discuss resouces at another time.
[2019-04-15 17:00] VITALS: BP 131/87
[2019-04-16 01:39] VITALS: BP 130/84
--- NOTE | 2019-04-16 05:20 | NUR ---
ASSUMED PT CARE AT 1900. PT IS ALERT AND ORIENTEDX4, ASSESSMENTS CHARTED, DENIES SOB, ST/SR ON THE MONITOR, COMPLAINED OF RIGHT SHOULDER PAIN, MORPHINE GIVEN ORDERED, RESTED THROUGH THE NIGHT, WILL CONTINUE TO MONITOR
[2019-04-16 05:27] VITALS: BP 126/83
[2019-04-16 08:00] VITALS: BP 118/72
[2019-04-16] MEDS ORDERED: SPIRONOLACTONE25 M1 PO (09:20)
[2019-04-16] MEDS ORDERED: DEMADEX20 MG PO (09:20)
[2019-04-16 09:58] LABS: CALCIUM 8.7 mg/dL (8.5-10.1); CREATININE 1.3 mg/dL (0.7-1.3); MAGNESIUM 1.7 mg/dL (1.8-2.4); POTASSIUM 3.2 mmol/L (3.5-5.1)
[2019-04-16 11:00] VITALS: BP 111/73
[2019-04-16 12:47] VITALS: BP 111/73
--- NOTE | 2019-04-16 13:39 | NUR ---
ASSESSMENT CHARTED. PT ALERT AND ORIENTED. VSS. DENIED HAVING PAIN OR DISCOMFORT. SEEN BY DR. GOLDMAN. ORDERS GIVEN TO DISCHARGE PT TO HOME. DISCHARGE INSTRUCTIONS GIVEN TO PT. PT VERBERLISED UNDERSTANDING.
--- NOTE | 2019-04-16 15:12 | NUR ---
met with patient alone and discussed substance abuse tx. 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 Patient reports long stretch of time when he did not use but returned to using and associates with users. Discussed tx options and patient interested in tx gave him resources for tx and encouraged to call.
== END 2019-04-16 13:43 | disposition home or self-care (01) | DRG 291 ==
LOC: ER 09:50 → 2N 11:18 → EROBS 11:18 → 2N 12:20 → ENTRNSPT 04-15 16:48 → DELTRNSPT 04-15 17:21 → ENTRNSPT 04-16 13:28 → EDTRNSPTSTS 04-16 13:31 → 2N 04-16 13:43 → CMPTRNSPT 04-16 14:35
PROVIDERS: Emergency Medicine; Nurse Practitioner; ADMIT Hospitalist
DX: I13.0 Hypertensive heart and chronic kidney disease with heart failure and stage 1 through stage 4 chronic kidney disease, or unspecified chronic kidney disease (principal); J96.21 Acute and chronic respiratory failure with hypoxia; I50.43 Acute on chronic combined systolic (congestive) and diastolic (congestive) heart failure; N17.9 Acute kidney failure, unspecified; R79.89 Other specified abnormal findings of blood chemistry; F15.11 Other stimulant abuse, in remission; E78.5 Hyperlipidemia, unspecified; R73.03 Prediabetes; I25.10 Atherosclerotic heart disease of native coronary artery without angina pectoris; F17.210 Nicotine dependence, cigarettes, uncomplicated; E83.42 Hypomagnesemia; N18.9 Chronic kidney disease, unspecified; I48.0 Paroxysmal atrial fibrillation; I25.5 Ischemic cardiomyopathy; F19.10 Other psychoactive substance abuse, uncomplicated; F11.10 Opioid abuse, uncomplicated; Z79.01 Long term (current) use of anticoagulants; Z87.01 Personal history of pneumonia (recurrent); Z86.718 Personal history of other venous thrombosis and embolism; I25.2 Old myocardial infarction; Z95.5 Presence of coronary angioplasty implant and graft; Z79.2 Long term (current) use of antibiotics; Z79.82 Long term (current) use of aspirin; Z79.899 Other long term (current) drug therapy
CPT/HCPCS: 10081

== ENCOUNTER 2019-05-02 18:02 | Emergency (ER) | payer OTHER ==
[~2019-05-02] VITALS: Ht 180.3 cm; Wt 104.3 kg
[~2019-05-02 18:02] MED LIST changes: +DEMADEX20 MG PO
[2019-05-02 18:20] LABS: ABSOLUTE NEUTROPHILS 4.4 thou/uL (1.4-8.2); BASOPHILS 1.1 % (0.0-2.0); EOSINOPHILS 3.6 % (0.0-3.0); HEMATOCRIT 43.6 % (42.0-52.0); LYMPHOCYTES 26.3 % (24.0-44.0); MCH 30.6 pg (26.0-34.0); MCHC 32.2 g/dL (28.0-37.0); MCV 94.9 fL (80.0-100.0); MONOCYTES 8.4 % (1.0-8.0); PLATELET COUNT 191 thou/uL (150-400); POLYS 60.6 % (36.0-66.0); RBC 4.59 mil/uL (4.50-6.00); RDW 15.4 % (10.5-14.5); WBC 7.2 thou/uL (4.0-11.0)
[2019-05-02 18:25] LABS: ANION GAP 7 mmol/L (7-16); BUN 11 mg/dL (7-18); CALCIUM 8.6 mg/dL (8.5-10.1); CHLORIDE 107 mmol/L (98-107); CO2 28 mmol/L (21-32); CREATININE 1.4 mg/dL (0.7-1.3); GLUCOSE 132 mg/dL (74-106); POTASSIUM 3.9 mmol/L (3.5-5.1); SODIUM 142 mmol/L (136-145)
[2019-05-02 18:34] LABS: ALBUMIN 3.2 g/dL (3.4-5.0); SGOT 23 U/L (15-37); SGPT 38 U/L (30-65); TOTAL BILIRUBIN 3.1 mg/dL (<0.1-1.0); TOTAL PROTEIN 7.1 g/dL (6.4-8.2); TROPONIN-I <0.06 ng/mL (<0.06)
[2019-05-02 22:15] VITALS: BP 144/88
--- NOTE | 2019-05-03 13:39 | EKG ---
[facility] [place] [address] ELECTROCARDIOGRAM REPORT Name: SOPHIEBRUCE [id number] Admission: 05/02/19 Attend Phys: Discharge: 05/03/19 Date of : 69 Report #: [id number] THIS REPORT FOR: cc: FAM - Family physician unknown FAM - Family physician unknown Khoa Guy MD ~ THIS REPORT FOR: //name// [facility] ED Test Date: 2019-05-02 Test Time: 18:05:45 Pat Name: BRUCE BARRIOS Department: Room: Gender: Back Sizer: [facility] : 1965 Requested By: Enriqueta Mcconnell Order Number: [id number] MD: Khoa Guy Measurements Intervals [place] Rate: 110 P: 50 PA: 184 QRS: -62 QRSD: 119 T: 137 QT: 358 QTc: 485 Interpretive Statements Sinus tachycardia Left atrial enlargement Incomplete left bundle branch block LVH with secondary repolarization abnormality Anterior Q waves, possibly due to LVH Compared to ECG 04/14/2019 09:55:17 Sinus rhythm no longer present Electronically Signed On 05-03-2019 13:38:57 PRESS MAINTAINER by Khoa Guy [email or web address] <ELECTRONICALLY SIGNED> By: Khoa Guy MD 05/03/19 1338 04 04 Khoa Guy MD /EPI
== END 2019-05-03 03:58 | disposition home or self-care (01) ==
LOC: ER 18:02
PROVIDERS: Emergency Medicine
DX: R06.02 Shortness of breath (principal); R07.9 Chest pain, unspecified; I10 Essential (primary) hypertension; I48.91 Unspecified atrial fibrillation; I25.10 Atherosclerotic heart disease of native coronary artery without angina pectoris; E78.5 Hyperlipidemia, unspecified; F17.210 Nicotine dependence, cigarettes, uncomplicated; Z95.5 Presence of coronary angioplasty implant and graft

== ENCOUNTER 2019-07-24 21:16 | Inpatient (IN) | payer OTHER ==
[~2019-07-24] VITALS: Ht 180.3 cm; Wt 107.0 kg
--- NOTE | ~2019-07-24 | EMS ---
[place] [address] EMS Patient Care Report Name: BRUCE BARRIOS Room #: PRE ER M.R.#: [id number] Admission: Attend Phys: Discharge: Date of : 69 Report #: [id number] THIS REPORT FOR: //name// Report Transmitted: 07/24/2019 20:45 EMS Care Summary [place], [place]/[facility] Incident [id number] @ 07/24/2019 20:45 Incident Location [facility] [place] [address] Patient BRUCE BARRIOS Male, 54 Years 1965 Patient Address [address] [place] [address] Patient History Hypertension (HTN),Hyperlipidemia,Myocardial Infarction (PA), Patient Allergies No known allergies, Patient Medications Losartan, Pradaxa, Coreg, Aspirin, Lipitor, Spironolactone, Chief Complaint My chest is killing me Disposition Transported No Lights/[place] Dispatch Reason Chest Pain (Non-Traumatic) Transported To [facility] Narrative Called to the scene for CP. Upon arrival, P41 on the scene. Pt c/o CP and SOB starting approx 5pm. He also stated he hasn't felt well for a couple of days. He denied a fever and cough. He requested transport to [facility] ER. P41 performed vitals and a 12 lead. Pt appeared to have possible 1mm [place] [address] EMS Patient Care Report Name: BRUCE BARRIOS Room #: PRE ER M.R.#: [id number] Admission: Attend Phys: Discharge: Date of : 69 Report #: [id number] leads, but no reciprocal changes. He was moved to the EMS cot and loaded into the ambulance w/o incident. Vitals repeated. 20g IV. Repeat 20 lead, no changes. D-stick. O2. 325mg ASA and 0.4mg NTG. Vitals repeated. En route; no changes or improvement. RR to [facility]. Arrived: pt taken to ER #10, pt care & report to ER staff. Initial Vitals @21:02P: 116,Pain: 10/10,GCS: 15,CO: 1,SpO2: 98,PA Suspected: false @21:02P: 117,R: 16,BP: 133/106,Pain: 10/10,GCS: 15,Glucose: 142,SpO2: 97,Revised Trauma: 12,PA Suspected: false @21:00P: 116,R: 16,BP: 135/98,Pain: 10/10,GCS: 15,CO: 0,SpO2: 97,Revised Trauma: 12,PA Suspected: false Assessments @20:54MENTAL:Person Oriented,Time Oriented,Event Oriented,Place Oriented,SKIN:HEENT:LUNG SOUNDS:ABDOMEN:PELVIS//GI:EXTREMITIES:Left Arm: No Abnormalities,Right Arm: No Abnormalities,Left Leg: No Abnormalities,Right Leg: No Abnormalities,PULSE:NEURO:No Abnormalities, Impression Chest Pain / Discomfort Procedures @21:0212-Lead ECGResponse: UnchangedSucceeded@21:013-Lead ECGResponse: UnchangedSucceeded@20:59StretcherResponse: Unchanged@21:02Oxygen FlowRate: 4 Device: Nasal Cannula (NC) Response: UnchangedSucceeded@20:54ALS AssessmentResponse: UnchangedSucceeded@21:02Aspirin - 324 Milligrams (mg) - OralResponse: Unchanged@21:03Nitrostat - 0.4 Milligrams (mg) - SublingualResponse: Unchanged@21:00Saline Lock 8cc (20 ga) Site: Antecubital-LeftResponse: UnchangedSucceeded Timeline 20:44,Call Received 20:44,Dispatch Notified 20:45,Dispatched 20:47,En Route 20:53,On Scene 20:54,At Patient 20:54,ALS Assessment,Response: UnchangedSucceeded, 20:59,Stretcher,Response: Unchanged 21:00,BP: 135/98 M,PULSE: 116,RR: 16 R,SPO2: 97 Ox,ETCO2: ,BG: ,PAIN: 10,GCS: 15, 21:00,Saline Lock 8cc 20 ga Site: Antecubital-Left,Response: UnchangedSucceeded, 21:01,3-Lead ECG,Response: UnchangedSucceeded, 21:02,12-Lead ECG,Response: UnchangedSucceeded, 21:02,BP: / M,PULSE: 116,RR: R,SPO2: 98 Ox,ETCO2: ,BG: ,PAIN: 10,GCS: 15, [address] [address] EMS Patient Care Report Name: SOPHIEBRUCE Room #: PRE M.R.#: [id number] Admission: Attend Phys: Discharge: Date of : 69 Report #: [id number] 21:02,BP: 133/106 M,PULSE: 117,RR: 16 R,SPO2: 97 Ox,ETCO2: ,B,PAIN: 10,GCS: 15, 21:02,Oxygen FlowRate: 4 Device: Nasal Cannula (NC) Response: UnchangedSucceeded, 21:02,Depart Scene 21:02,Aspirin - 324 Milligrams (mg) - Oral,Response: Unchanged 21:03,Nitrostat - 0.4 Milligrams (mg) - Sublingual,Response: Unchanged 21:13,At Destination 21:28,Call Closed Disclaimer v1.1 Copyright 2020 [employer] This EMS Care Summary contains data elements from the applicable legal record (which may be displayed differently). It is designed to provide pertinent information for the following purposes: continuity of care, clinical quality, and state data reporting. The complete legal record is available to ED staff and administrators of the receiving hospital in [employer]'s Patient Tracker. All data is provided "as is."
[2019-07-24 21:20] VITALS: BP 132/102
[2019-07-24 21:31] LABS: BASOPHILS 1.3 % (0.0-2.0); EOSINOPHILS 2.1 % (0.0-3.0); HEMATOCRIT 46.4 % (42.0-52.0); HEMOGLOBIN 15.2 gm/dL (14.0-18.0); LYMPHOCYTES 19.3 % (24.0-44.0); MCH 31.3 pg (26.0-34.0); MCHC 32.8 g/dL (28.0-37.0); MCV 95.4 fL (80.0-100.0); MONOCYTES 6.4 % (1.0-8.0); PLATELET COUNT 230 thou/uL (150-400); POLYS 70.9 % (36.0-66.0); RBC 4.86 mil/uL (4.50-6.00); RDW 17.7 % (10.5-14.5); WBC 11.3 thou/uL (4.0-11.0)
[2019-07-24 21:38] LABS: ANION GAP 11 mmol/L (7-16); BUN 14 mg/dL (7-18); CALCIUM 8.6 mg/dL (8.5-10.1); CHLORIDE 103 mmol/L (98-107); CO2 22 mmol/L (21-32); CREATININE 1.1 mg/dL (0.7-1.3); GLUCOSE 163 mg/dL (74-106); SODIUM 136 mmol/L (136-145)
[2019-07-24 21:48] LABS: ALBUMIN 2.9 g/dL (3.4-5.0); LIPASE 79 U/L (73-393); SGOT 25 U/L (15-37); SGPT 27 U/L (30-65); TOTAL BILIRUBIN 3.9 mg/dL (<0.1-1.0); TOTAL PROTEIN 7.1 g/dL (6.4-8.2); TROPONIN-I <0.06 ng/mL (<0.06)
[2019-07-25 00:30] LABS: CHOLESTEROL 166 mg/dL (<200); HDL CHOLESTEROL 22 mg/dL (>40); LDL CHOLESTEROL 125 mg/dL (<100); SERUM ASSESSMENT Clear; TC:HDL 7.5 Ratio (Not establshd); TRIGLYCERIDE 99 mg/dL (<150); VLDL 20 mg/dL (<40)
[2019-07-25 02:04] LABS: ANION GAP 12 mmol/L (7-16); BUN 15 mg/dL (7-18); CALCIUM 8.7 mg/dL (8.5-10.1); CHLORIDE 102 mmol/L (98-107); CO2 23 mmol/L (21-32); CREATININE 1.4 mg/dL (0.7-1.3); GLUCOSE 149 mg/dL (74-106); HEMATOCRIT 47.5 % (42.0-52.0); HEMOGLOBIN 15.3 gm/dL (14.0-18.0); MCH 31.1 pg (26.0-34.0); MCHC 32.3 g/dL (28.0-37.0); MCV 96.2 fL (80.0-100.0); POTASSIUM 4.5 mmol/L (3.5-5.1); RBC 4.93 mil/uL (4.50-6.00); RDW 17.7 % (10.5-14.5); SODIUM 137 mmol/L (136-145); WBC 10.7 thou/uL (4.0-11.0)
[2019-07-25 02:12] LABS: TROPONIN-I <0.06 ng/mL (<0.06)
[2019-07-25 02:30] VITALS: BP 116/81
--- NOTE | 2019-07-25 02:42 | NUR ---
SURVEILLANCE OPERATOR CALLED 3W TO GIVE PT REPORT TO INPATIENT NURSE BUT WAS PLACED ON HOLD FOR OVER 5 MINUTES. CALL WILL BE PLACED AGAIN IN FEW MINUTES.
[2019-07-25 03:17] VITALS: BP 118/86
[2019-07-25 04:28] VITALS: BP 110/70
--- NOTE | 2019-07-25 06:48 | NUR ---
RECEIVED PT AND ASSUMED CARE FOR THIS PT AT 0400. PT WAS PLEASANT DURING THE INTIAL MEET. PT STATED THAT HE HAD PERSISTANT CARDIAC PAIN THAT HAS NOT CHANGED SINCE THE ADMISSION INTO THE ED. CURRENTLY MONITORING PATIENT ON THE MONITOR FOR CHANGES AND PT HAS BEEN CONTINUALLY AROUND 90-100s HR. VS ARE STABLE, STATES PAIN OF 6/10 AND GOAL OF 3/10. PRIMARY CONCERN AT THIS TIME IS GETTING BETTER. PT VERBALIZES UNDERSTANDING OF CARE PLAN AND HAS BEEN PLACED ON NPO SINCE MY ASSUMPTION OF CARE. WILL PASS ON TO DAY SHIFT
--- NOTE | 2019-07-25 08:43 | EKG ---
[facility] [address] ELECTROCARDIOGRAM REPORT Name: BRUCE BARRIOS Room #: 355-[facility] M.R.#: [id number] Admission: 07/24/19 Attend Phys: Juvenal Santiago Discharge: Date of : 69 Report #: [id number] THIS REPORT FOR: cc: DARREN ALDANA Physician not on staff Srinivas Navarro MD [facility] THIS REPORT FOR: //name// [facility] ED Test Date: 2019-07-24 Test Time: 21:18:55 Pat Name: BRUCE BARRIOS Department: Room: [facility] Gender: M Transformation Analyst: CORY : 1965 Requested By: Tae Chauhan Order Number: [id number] MD: Srinivas Navarro Measurements Intervals [place] Rate: 110 P: 55 CT: 188 QRS: -61 QRSD: 115 T: 118 QT: 352 QTc: 477 Interpretive Statements Sinus tachycardia Leftward axis Left atrial enlargement Incomplete left bundle branch block Compared to ECG 05/02/2019 18:05:45 No significant change was found Electronically Signed On 07-25-2019 8:41:51 CDT by Srinivas Navarro [email or web address] <ELECTRONICALLY SIGNED> By: Srinivas Navarro MD, [facility] 07/25/19 0841 17 17 Srinivas Navarro MD, [facility] /EPI
[2019-07-25 08:48] VITALS: BP 125/87
--- NOTE | 2019-07-25 11:34 | NUR ---
PT CARE ASSUMED AT 0700. A&Ox4. HAS INTERNAL DEFIBULATOR. 3 DOSES OF NITRO GIVEN WITH NO CHEST PAIN RELIEF THEN MORPHINE GIVEN WITH PAIN RESULTS OF 8 GOING DOWN TO 6. CARDIAC, RT, AND SW ON CASE. PT ON ROOM AIR NOW AFTER BEING TITRATED DOWN. IV IS A FIELDSTICK 20G AND NEEDS TO BE REMOVED 07/26 BY 0300. COVID RESULTS CAME BACK NEGATIVE. PER CARDIAC MD DO NOT GIVE NITRO FOR CHEST PAIN SINCE CHEST PAIN IS MUSCULAR NOT CARDIAC RELATED. SCD'S. PT RUNNING SINUS TACH WITH BBB. L.LEG NUMBNESS FROM PAST INJURY. OFF OF NPO AND HAS BEEN PUT ON HEART HEALTHY DIET. PER MD. BERKOWITZ DOES NOT NEED TO BE ACHS (PREDIABETIC) BECAUSE GLUCOSE ARE OK WITH HIGHEST BEING 168. UP TOLERATED. CALL LIGHT IN REACH. WILL CONTINUE TO MONITOR. AWAITING INFECTIOUS DISEASE TO CLEAR FOR PT TO TRANSFER OFF THE RULE OUT UNIT.
--- NOTE | 2019-07-25 13:43 | NUR ---
INITIAL ASSESSMENT: LAWRENCE reviewed chart and spoke with nursing and attending physician. Pt was admitted from home due to chest pain/pneumonia. Pt is in Enhanced Isolation. COVID-19 results are negative. Pt may transfer off 3W. SW attempted to call pt in room. No answer. SW left voice message for pt at listed contact number [phone]. Per chart, pt is alert/orientated x 4. Pt lives at home and is independent with ADLs. Pt's PCP is Dr. Ajay Jin at [facility]. Pt may discharge home over the weekend. No discharge needs anticipated. SW is available to assist should needs arise.
--- NOTE | 2019-07-25 15:56 | 2DMMODE ---
[facility] [address] [place] [address] 2 D/M-MODE ECHOCARDIOGRAM Name: BRUCE BARRIOS Room #: 355-[facility] Shwetha M.RMusa#: [id number] Admission: 07/24/19 Attend Phys: Juvenal Santiago Discharge: Date of : 69 Report #: [id number] THIS REPORT FOR: cc: DARREN ALDANA Physician not on staff Mele Cho MD ~ APPROVED REPORT Study performed: 07/25/2019 13:04:13 EXAM: Comprehensive 2D, Doppler, and color-flow Echocardiogram Patient Location: Bedside Room #: [facility] Status: routine BSA: 2.25 HR: 105 bpm BP: 139/94 mmHg Other Information Study Quality: Adequate Indications CAD Chest Pain Hypertension/HDD HLD,ICD, SOA 2D Dimensions RVDd: 42.12 mm IVSd: 9.99 (7-11mm) LVOT Diam: 21.37 (18-24mm) LVDd: 58.99 mm PWd: 11.23 (7-11mm) Ascending Ao: 30.12 (22-36mm) LVDs: 54.63 (25-40mm) Aortic Root: 29.18 mm IVC: 25.00 mm Volumes Left Atrial Volume (Systole) Single Plane 4CH: 68.29 mL Single Plane 2CH: 65.35 mL LA ESV Index: 31.00 mL/m2 Aortic Valve AoV Peak Dale.: 0.73 m/s AO Peak Gr.: 2.12 mmHg LVOT Max P.86 mmHg LVOT Max V: 0.46 m/s [facility] [address] [place] [address] 2 D/M-MODE ECHOCARDIOGRAM Name: BRUCE BARRIOS Room #: 355-P [facility] IN .R.#: [id number] Admission: 07/24/19 Attend Phys: Juvenal Mcneill Discharge: Date of : 69 Report #: [id number] AMINTA Vmax: 2.28 cm2 Mitral Valve MV Decel. Time: 134.19 ms MV E Max Dale.: 1.18 m/s IVRT: 89.97 ms Pulmonary Valve PV Peak Dale.: 0.58 m/s PV Peak Gr.: 1.35 mmHg Tricuspid Valve TR Peak Dale.: 2.48 m/s RAP Estimate: 15.00 mmHg TR Peak Gr.: 24.61 mmHg PA Pressure: 40.00 mmHg Left Ventricle Left ventricle is moderately dilated. There is global hypokinesis of the left ventricle. There is normal left ventricular wall thickness. Left ventricular ejection fraction is severely decreased. Left ventricular apical echoes suggestive of a apical thrombus LVEF is 10-15%. This study is not technically sufficient to allow evaluation of the LV diastolic function. Right Ventricle Right ventricle is dilated. Right ventricle is hypokinetic. Atria Left atrium is at the upper limits of normal. Right atrium is mildly dilated. Aortic Valve The aortic valve is normal in structure. Trace aortic regurgitation. There is no aortic valvular stenosis. Mitral Valve The mitral valve is normal in structure. Moderate mitral regurgitation. No evidence of mitral valve stenosis. Tricuspid Valve The tricuspid valve is normal in structure. Trace to mild tricuspid regurgitation. PAP is estimated at 40 mmHg. Pulmonic Valve The pulmonary valve is normal in structure. Trace pulmonic regurgitation. [facility] [address] [place] [address] 2 D/M-MODE ECHOCARDIOGRAM Name: SOPHIEBRUCE Room #: 355-[facility] IN M.R.#: [id number] Admission: 07/24/19 Attend Phys: Juvenal Mcneill Discharge: Date of : 69 Report #: [id number] Great Vessels The aortic root is normal in size. IVC is dilated and collapses <50% with inspiration. Pericardium There is no pericardial effusion. <Conclusion> Left ventricle is moderately dilated. LVEF is 10-15%. There is global hypokinesis of the left ventricle. Right ventricle is dilated. Right ventricle is hypokinetic. Left atrium is at the upper limits of normal. Right atrium is mildly dilated. The aortic valve is normal in structure. Trace aortic regurgitation. The mitral valve is normal in structure. Moderate mitral regurgitation. The tricuspid valve is normal in structure. Trace to mild tricuspid regurgitation. PAP is estimated at 40 mmHg. The pulmonary valve is normal in structure. Trace pulmonic regurgitation. There is no pericardial effusion. Left ventricular apical echoes suggestive of a apical thrombus <ELECTRONICALLY SIGNED> By: Mele Cho MD 07/25/19 1554 1554 1554 Mele Cho MD /INF
--- NOTE | 2019-07-25 16:10 | EKG ---
[facility] [place] [address] [place] [address] ELECTROCARDIOGRAM REPORT Name: BRUCE BARRIOS Room #: 355-[facility] M.R.#: [id number] Admission: 07/24/19 Attend Phys: Juvenal Santiago Discharge: Date of : 69 Report #: [id number] THIS REPORT FOR: cc: DARREN ALDANA Physician not on staff Srinivas Navarro MD [facility] ~ THIS REPORT FOR: //name// [facility] Test Date: 2019-07-25 Test Time: 08:12:48 Pat Name: BRUCE BARRIOS Department: Room: [facility] Gender: M Public Area Supervisor: AQUILES : 1965 Requested By: Liyah Gardiner Order Number: [id number] MD: Srinivas Navarro Measurements Intervals [place] Rate: 109 P: 76 IA: 176 QRS: -62 QRSD: 114 T: 145 QT: 358 QTc: 483 Interpretive Statements Sinus tachycardia Right atrial enlargement Incomplete left bundle branch block Compared to ECG 05/02/2019 18:05:45 No significant changes Electronically Signed On 07-25-2019 16:08:30 CDT by Srinivas Navarro [email or web address] <ELECTRONICALLY SIGNED> By: Srinivas Navarro MD, FAC 07/25/19 1608 1 1 Srinivas Navarro MD, [facility] /EPI
[2019-07-25 17:14] VITALS: BP 113/78
--- NOTE | 2019-07-25 18:39 | NUR ---
REC PT FROM 3W APPROX 1830, A&0X4, SETTLED IN, GOT HIM SOME SNACKS AND FRESH WATER, ROOM AIR, ONLY C/O PAIN WAS HIS CHEST WAS SORE FROM COUGHING, WANTED LIGHTS OFF AND BLIND PULLED.RT TX, LIKES HIS DOOR SHUT. ENCOURAGED HIM TO USE CALL LIGHT FOR ANY NEEDS
[2019-07-25 19:20] VITALS: BP 139/93
[2019-07-26 00:07] LABS: GLYCOHEMOGLOBIN (HGB A1C) 7.1 % (4.8-5.6)
--- NOTE | 2019-07-26 03:44 | NUR ---
PT ALERT AND ORIENTED. CHEST PAIN DUE TO COUGHING. MORPHINE NEEDED. PT DENIES NAUSEA , VOMITING OR SOB. ASSESSMENTS DOCUMENTED. WILL CONTINUE TO MONITOR.
[2019-07-26 04:02] LABS: ANION GAP 9 mmol/L (7-16); BUN 23 mg/dL (7-18); CALCIUM 8.7 mg/dL (8.5-10.1); CHLORIDE 99 mmol/L (98-107); CO2 27 mmol/L (21-32); CREATININE 1.3 mg/dL (0.7-1.3); GLUCOSE 129 mg/dL (74-106); POTASSIUM 4.1 mmol/L (3.5-5.1); SODIUM 135 mmol/L (136-145)
[2019-07-26 04:07] LABS: TROPONIN-I <0.06 ng/mL (<0.06)
[2019-07-26 06:08] VITALS: BP 106/72
--- NOTE | 2019-07-26 07:47 | NUR ---
ASSUMED CARE OF PT AT SHIFT CHANGE, SNORING. GENTLY AWOKE TO LET HIM KNOW TO RE-INTROD SELF, ENCOURAGED HIM TO ASK FOR PO PAIN MEDICATION SHOULD HE SEE PHYSICIAN BEFORE I REACH OUT. NOTED IN EMAR IV PAIN MED GIVEN TWICE YESTERDAY AND ONCE THROUGHOUT THE NIGHT. PAIN W/COUGH. ENCOURAGED HIM TO USE CALL LIGHT FOR ANY NEEDS. WILL CONTINUE TO MONITOR
[2019-07-26 08:57] VITALS: BP 114/76
[2019-07-26 16:30] VITALS: BP 104/65
[2019-07-26 20:50] VITALS: BP 104/89
[2019-07-26 20:52] VITALS: BP 104/89
[2019-07-27 05:22] VITALS: BP 94/60
--- NOTE | 2019-07-27 05:40 | NUR ---
PT RESTED THROUGH THE NIGHT. ANTICIPATES TO DC THIS MORNING. VSS. REPORTS MUSCLULAR CHEST PAIN FROM COUGHING. PT INDEPENDENT IN HIS ROOM. CURRENTLY NO NEW CONCERNS VOICED. WILL CONTINUE WITH POC.
[2019-07-27 08:00] VITALS: BP 93/71
[2019-07-27 12:50] VITALS: BP 109/75
[2019-07-27 17:00] VITALS: BP 103/73
--- NOTE | 2019-07-27 17:21 | NUR ---
ASSUMMED PT CARE AT APPROXIMATELY 0700. PT A&O X4. ASSESSMENT CHARTED. FALL PRECAUTIONS IN PLACE. PT DENIES HAVING CARDIAC CHEST PAIN. PT DENIES HAVING SOB. PT STATED HE HAD ACUTE PAIN. PT RECEIVED ANALGESICS. PT STATED ANALGESICS HELPED RELIEVE PAIN. VITAL SIGNS STABLE. PT AMBULATES STEADY/INDEPENDENT. PT COMFORTABLE. PT DENIES HAVING FURTHER CONCERNS.
[2019-07-28 05:49] VITALS: BP 106/80
--- NOTE | 2019-07-28 07:11 | NUR ---
AROUND 2229 PATIENT STARTED TO COMPLAIN OF NAUSEA AND "FEELING HOT", HE ATTRIBUTED HIS SYMPTOMS TO DOSAGE OF BENADRYL GIVEN PER PATIENTS REQUEST FOR SLEEP AID. PATIENT HAD NO KNOWN ALLERGIES AND STATED THAT HE HAD TAKEN BENADRYL IN THE PAST WITHOUT EVENT. VITAL SIGNS REMAINED STABLE THROUGHOUT EVENT. NURSE WAS CONCERNED ENOUGH WITH PATIENTS COMPLAINTS AND DEMEANOR THAT HE REQUESTED CHARGE NURSE AND TRACTOR MECHANIC COME AND ASSESS PATIENT TO MAKE SURE THIS NURSE WAS NOT MISSING SOMETHING. BY THE TIME TRACTOR MECHANIC MADE IT TO THE ROOM PATIENT WAS SLEEPING AND BECAME UPSET ABOUT BEING AWAKENED. ALLERGY TO BENADRYL ADDED TO PATIENTS RECORD WITH ALLERGY BAND PLACED ON PATIENT.
[2019-07-28 08:45] VITALS: BP 117/80
[2019-07-28] MEDS ORDERED: PROAIR HFA8.5 GM INH (10:35)
[2019-07-28] MEDS ORDERED: NORCO 5-325 TA1 EAC1 PO (10:35)
[2019-07-28] MEDS ORDERED: CEFDINIR300 MG PO (10:36)
[2019-07-28 11:41] VITALS: BP 117/80
--- NOTE | 2019-07-28 12:33 | NUR ---
ASSUMMED PT CARE AT APPROXIMATELY 0700. PT A&O X4. ASSESSMENT CHARTED. FALL PRECAUTIONS IN PLACE. PT DENIES HAVING CHEST PAIN. PT DENIES HAVING SOB. PT STATED HIS CHES-NON CARDIAC CHEST PAIN HAD IMPROVED SINCE YESTERDAY. PT RECIEVED MEDICATION TO HELP C COUGH. PT STATED MEDICATION HELPED RELIEVE COUGH. PT DISCHARGING HOME C SELF CARE. PT RECEIVED DISCHARGE EDUCATION. PT STATED UNDERSTANDING AND DENIED HAVING FURTHER QUESTIONS. IV DC. TELE DC. VITAL SIGNS STABLE. PT AMBULATES STEADY/INDEPENDENT. PT COMFORTABLE. PT DENIES HAVING FURTHER CONCERNS. AWAITING HOSPITAL TRANSPORT TO TAKE PT OFF UNIT.
== END 2019-07-28 13:04 | disposition home or self-care (01) | DRG 871 ==
LOC: ER 21:16 → EROBS 23:09 → 2N 23:09 → EROBS 23:09 → 3W 07-25 02:50 → 2N 07-25 18:29 → ENTRNSPT 07-28 12:32 → 2N 07-28 13:04
PROVIDERS: Emergency Medicine; Nurse Practitioner Family; ADMIT Hospitalist
DX: A41.9 Sepsis, unspecified organism (principal); J18.9 Pneumonia, unspecified organism; J96.01 Acute respiratory failure with hypoxia; N17.9 Acute kidney failure, unspecified; I13.0 Hypertensive heart and chronic kidney disease with heart failure and stage 1 through stage 4 chronic kidney disease, or unspecified chronic kidney disease; I50.42 Chronic combined systolic (congestive) and diastolic (congestive) heart failure; I25.10 Atherosclerotic heart disease of native coronary artery without angina pectoris; I48.0 Paroxysmal atrial fibrillation; R79.1 Abnormal coagulation profile; J43.9 Emphysema, unspecified; F19.10 Other psychoactive substance abuse, uncomplicated; F17.210 Nicotine dependence, cigarettes, uncomplicated; N18.9 Chronic kidney disease, unspecified; Z20.828 Contact with and (suspected) exposure to other viral communicable diseases; I25.5 Ischemic cardiomyopathy; E78.5 Hyperlipidemia, unspecified; I25.2 Old myocardial infarction; Z79.899 Other long term (current) drug therapy; Z79.01 Long term (current) use of anticoagulants; Z95.810 Presence of automatic (implantable) cardiac defibrillator
CPT/HCPCS: 10081

== ENCOUNTER → 2019-08-04 | Outpatient (CLI) | payer OTHER ==
[~2019-08-04] MED LIST changes: +CEFDINIR300 MG PO; +NORCO 5-325 TA1 EAC1 PO; +PROAIR HFA8.5 GM INH
== END ==
LOC: SJCVC 14:09
PROVIDERS: ATTEND Internal Medicine Cardiovascular Disease
DX: R94.31 Abnormal electrocardiogram [ECG] [EKG] (principal); I13.10 Hypertensive heart and chronic kidney disease without heart failure, with stage 1 through stage 4 chronic kidney disease, or unspecified chronic kidney disease; N18.9 Chronic kidney disease, unspecified; I25.5 Ischemic cardiomyopathy; I25.10 Atherosclerotic heart disease of native coronary artery without angina pectoris; E78.00 Pure hypercholesterolemia, unspecified; I48.0 Paroxysmal atrial fibrillation; F17.200 Nicotine dependence, unspecified, uncomplicated; F19.10 Other psychoactive substance abuse, uncomplicated; Z95.810 Presence of automatic (implantable) cardiac defibrillator; Z79.899 Other long term (current) drug therapy

== ENCOUNTER 2019-08-19 04:40 | Inpatient (IN) | payer OTHER ==
[~2019-08-19] VITALS: Ht 180.3 cm; Wt 96.4 kg
[2019-08-19 04:41] VITALS: BP 123/77
[2019-08-19 04:58] LABS: ABSOLUTE NEUTROPHILS 6.7 thou/uL (1.4-8.2); BASOPHILS 0.9 % (0.0-2.0); EOSINOPHILS 1.7 % (0.0-3.0); HEMATOCRIT 45.6 % (42.0-52.0); HEMOGLOBIN 14.8 gm/dL (14.0-18.0); LYMPHOCYTES 17.1 % (24.0-44.0); MCH 30.9 pg (26.0-34.0); MCHC 32.5 g/dL (28.0-37.0); MONOCYTES 10.6 % (1.0-8.0); PLATELET COUNT 242 thou/uL (150-400); POLYS 69.7 % (36.0-66.0); RDW 17.6 % (10.5-14.5); WBC 9.7 thou/uL (4.0-11.0)
[2019-08-19] MEDS ORDERED: COZAAR 25 MG TA25 M1 PO (04:59)
[2019-08-19 05:13] LABS: ANION GAP 9 mmol/L (7-16); BUN 17 mg/dL (7-18); CALCIUM 8.3 mg/dL (8.5-10.1); CHLORIDE 104 mmol/L (98-107); CO2 25 mmol/L (21-32); CREATININE 1.5 mg/dL (0.7-1.3); GLUCOSE 135 mg/dL (74-106); POTASSIUM 3.6 mmol/L (3.5-5.1); SODIUM 138 mmol/L (136-145)
[2019-08-19 05:23] LABS: ALBUMIN 2.9 g/dL (3.4-5.0); SGOT 26 U/L (15-37); SGPT 31 U/L (30-65); TOTAL BILIRUBIN 2.2 mg/dL (0.2-1.0); TOTAL PROTEIN 6.9 g/dL (6.4-8.2); TROPONIN-I <0.06 ng/mL (<0.06)
[2019-08-19 06:16] LABS: CHOLESTEROL 180 mg/dL (<200); HDL CHOLESTEROL 21 mg/dL (>40); LDL CHOLESTEROL 137 mg/dL (<100); TC:HDL 8.6 Ratio (Not establshd); TRIGLYCERIDE 110 mg/dL (<150); VLDL 22 mg/dL (<40)
[2019-08-19 06:20] LABS: SERUM ASSESSMENT Clear
--- NOTE | 2019-08-19 08:35 | NUR ---
SPOKE WITH FISCAL OFFICER TO SEE WHAT MEDICATIONS ARE APPROVED TO GIVE IF PT GOES TO GET A HEART CATH TODAY, FISCAL OFFICER APPROVED TO GIVE ASPIRIN, ATORVASTATIN, AND LOSARTAN.
--- NOTE | 2019-08-19 08:55 | EKG ---
[facility] [place] [place] [address] ELECTROCARDIOGRAM REPORT Name: BRUCE BARRIOS Room #: 170-9 ADM IN M.R.#: [id number] Admission: 08/19/19 Attend Phys: Giuseppe Matos MD Discharge: Date of : [birth year] Report #: [id number] THIS REPORT FOR: cc: [facility] - Clinic physician unknown [facility] - Clinic physician unknown Srinivas Navarro MD 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 08/19/19 0853 0442 0442 Srinivas Navarro MD, [facility] /EPI
[2019-08-19 11:51] LABS: URINE BILIRUBIN 1+ (Negative); URINE BLOOD 3+ (Negative); URINE CLARITY CLEAR; URINE COLOR YELLOW; URINE GLUCOSE-RANDOM* NEGATIVE (Negative); URINE KETONES NEGATIVE (Negative); URINE LEUKOCYTES-REFLEX NEGATIVE (Negative); URINE NITRITE-REFLEX NEGATIVE (Negative); URINE PROTEIN (DIPSTICK) 2+ (Negative); URINE SPECIFIC GRAVITY 1.025 (1.005-1.035)
[2019-08-19 11:56] LABS: ICTOTEST (BILI CONFIRMATORY) Positive (Negative)
[2019-08-19 12:01] LABS: AMP/METHAMP POSITIVE (Negative); BARBITURATES Negative (Negative); BENZODIAZEPINES Negative (Negative); COCAINE Negative (Negative); METHADONE Negative (Negative); OPIATES POSITIVE (Negative); PCP Negative (Negative)
--- NOTE | 2019-08-19 12:11 | 2DMMODE ---
[address] [address] 2 D/M-MODE ECHOCARDIOGRAM Name: BRUCE BARRIOS Room #: 170-9 ADM IN M.R.#: [id number] Admission: 08/19/19 Attend Phys: Giuseppe Matos MD Discharge: Date of : 69 Report #: [id number] THIS REPORT FOR: cc: [facility] - Clinic physician unknown [facility] - Clinic physician unknown Caleb Shah MD ~ APPROVED REPORT Study performed: 08/19/2019 10:30:32 EXAM: Comprehensive 2D, Doppler, and color-flow Echocardiogram Patient Location: ER Room #: 9 Status: routine BSA: 2.24 HR: 87 bpm BP: 116/84 mmHg Rhythm: Pacemaker Other Information Study Quality: Good Risk Factors: Cardiac Risk Factors: HTN, Hyperlipidemia, DM, Diabetes (insulin), Diabetes (non-insulin) Indications ICD: Atrial Fibrillation CAD Cardiomyopathy Chest Pain Hypertension/HDD Echo Enhancing Agent Indication: Rule out thrombus Agent(s) / Amount(s) Used: Optison 5 cc Left Ventricle Left ventricle is dilated. There is severe global hypokinesis of the left ventricle. There is normal left ventricular wall thickness. Left ventricular ejection fraction is severely decreased. Left ventricular apical thrombus is present. LVEF is 10-15%. [address] [address] 2 D/M-MODE ECHOCARDIOGRAM Name: BRUCE BARRIOS Room #: 170-9 ADM IN M.R.#: [id number] Admission: 08/19/19 Attend Phys: Giuseppe Matos, Discharge: Date of : 69 Report #: [id number] Right Ventricle Right ventricle is dilated. Right ventricle is hypokinetic. Device lead is present in the right ventricle. Atria Left atrium is dilated. Right atrium is dilated. Device lead is present in the right atrium. Aortic Valve The aortic valve is normal in structure. Mitral Valve The mitral valve is normal in structure. Tricuspid Valve The tricuspid valve is normal in structure. Pulmonic Valve The pulmonary valve is normal in structure. Great Vessels The aortic root is normal in size. The inferior vena cava is dilated with no inspiratory collapse. Pericardium There is no pericardial effusion. <Conclusion> Left ventricle is dilated. Left ventricular ejection fraction is severely decreased. LVEF is 10-15%. Right ventricle is dilated. Left ventricular apical thrombus is present. The aortic valve is normal in structure. There is no pericardial effusion. <ELECTRONICALLY SIGNED> By: Caleb Shah MD 08/19/19 1208 07 Caleb Shah MD /INF
[2019-08-19 12:17] LABS: HYALINE CASTS 0-3 Few /LPF (None Seen); SQUAMOUS 0-3 Few /LPF (0-3)
[2019-08-19 12:18] LABS: URINE RBC 3-10 Few /HPF (0-2); URINE WBC-REFLEX 0-5 Rare /HPF (0-5)
[2019-08-19 12:19] LABS: CRYSTALS None Seen /LPF (None Seen)
[2019-08-19 15:48] VITALS: BP 113/81
[2019-08-19 17:11] VITALS: BP 111/78
[2019-08-19 17:35] VITALS: BP 118/94
--- NOTE | 2019-08-19 18:13 | NUR ---
PT ARRIVED TO UNIT AT APPROX 1730 FROM ER. PT ALERT AND ORIENTED.VSS. C/O CHEST PAIN. WILL TREAT PER ORDERS. PT UP SBA TOLERATING WELL. O2 SATS WNL ON RA. TELE PUT ON. ADMISSION STRIP PRINTED AND DOCUMENTED. ADMISSION COMPLETE. PT CURRENTLY RESTING IN BED. DENIES NEEDS AT THIS TIME. WILL CONTINUE TO MONITOR AND FOLLOW POC. WILL PASS ON REPORT TO BRIT FOOTE.
[2019-08-19 20:15] VITALS: BP 115/84
[2019-08-20 00:30] VITALS: BP 123/84
[2019-08-20 01:08] LABS: GLYCOHEMOGLOBIN (HGB A1C) 7.5 % (4.8-5.6)
[2019-08-20 04:45] VITALS: BP 125/95
[2019-08-20 05:24] LABS: ANION GAP 10 mmol/L (7-16); BUN 19 mg/dL (7-18); CHLORIDE 103 mmol/L (98-107); CO2 26 mmol/L (21-32); CREATININE 1.6 mg/dL (0.7-1.3); GLUCOSE 123 mg/dL (74-106); MAGNESIUM 1.7 mg/dL (1.8-2.4); SODIUM 139 mmol/L (136-145); TROPONIN-I <0.06 ng/mL (<0.06)
[2019-08-20 05:36] LABS: HEMATOCRIT 47.4 % (42.0-52.0); HEMOGLOBIN 15.3 gm/dL (14.0-18.0); MCH 31.4 pg (26.0-34.0); MCHC 32.3 g/dL (28.0-37.0); MCV 97.1 fL (80.0-100.0); RBC 4.88 mil/uL (4.50-6.00); RDW 17.1 % (10.5-14.5); WBC 7.5 thou/uL (4.0-11.0)
[2019-08-20 06:06] LABS: POTASSIUM 4.7 mmol/L (3.5-5.1)
[2019-08-20 07:30] VITALS: BP 118/93
[2019-08-20 15:09] VITALS: BP 102/63
--- NOTE | 2019-08-20 16:10 | NUR ---
Admits with chest pain. Sp with patient who resides in independent home with mother. Independent with all adls. He does not work on disability. Patient reports he has used meth "im done with that stuff.' He denies resources for substance abuse treatment. Plan home once stable.
[2019-08-20 17:09] VITALS: BP 125/96
[2019-08-20 20:48] VITALS: BP 124/82
--- NOTE | 2019-08-20 21:54 | NUR ---
ASSUMMED PT CARE AT APPROXIMATELY 0700. PT A&O X4. ASSESSMENT CHARTED. FALL PRECAUTIONS IN PLACE. PT STATED HE HAS SOB ON EXERSION. PT O2 SAT STABLE. PT STATED HE HAD CHEST PRESSURE. PT RECIEVED MORPHINE. PT STATED MORPHINE HELPED DECREASE CHEST PRESSURE. PT AMBULATES STEADY/AD CHRISTINA. VITAL SIGNS STABLE. PT STATED HE HAD NAUSEA. PT RECEIVED ANTI-EMETIC. PT STATED ANTI-EMETIC HELPED DECREASE NAUSEA. PT COMFORTABLE IN BED. PT DENIES HAVING FURTHER CONCERNS. PT EDUCATED ABOUT POC. PT STATED UNDERSTANDING AND DENIED HAVING FURTHER QUESTIONS. MG REPLACEMENT.
--- NOTE | 2019-08-21 03:50 | NUR ---
PT RESTING IN NO ACUTE DISTRESS.A/OX4.VSS.SR ON MONITOR.NO REPORTED CHEST PAIN SO FAR THIS SHIFT.UP AD CHRISTINA TO BR.PT DENIES ANY NEEDS AT THIS TIME.PT POSSIBLY TO DISCHARGE TODAY TO HOME.
[2019-08-21 05:11] VITALS: BP 112/66
[2019-08-21 08:00] VITALS: BP 123/82
[2019-08-21 08:15] LABS: CREATININE 1.5 mg/dL (0.7-1.3); POTASSIUM 3.7 mmol/L (3.5-5.1)
[2019-08-21 08:19] LABS: ALBUMIN 2.9 g/dL (3.4-5.0); PHOSPHORUS 4.5 mg/dL (2.5-4.9)
[2019-08-21 11:29] VITALS: BP 123/83
[2019-08-21 13:41] VITALS: BP 123/83
--- NOTE | 2019-08-21 14:43 | NUR ---
ASSUMED CARE PT SHIFT CHANGE. ASSESSMENT CHARTED.MEDS GIVEN PER MAY. PT ALERT AND ORIENTED.VSS. DENIES PAIN. O2 SAT WNL ON RA. PT UP AD CHRISTINA TOLERATING WELL. DC ORDERS ACKNOWLEDGED AND IMPLEMENTED. PAPERWORK DISCUSSED WITH PT COMMUNICATES UNDERSTANDING .IV REMOVED. TELE REMOVED.PT LEFT UNIT WITH ALL BELONGINGS.
--- NOTE | 2019-08-27 09:18 | HC ---
[facility] [place] [address] CONSULTATION Name: BRUCE BARRIOS Room #: 219-P [facility] M.R.#: [id number] Admission: 08/19/19 Attend Phys: iGuseppe Matos MD Discharge: 08/21/19 Date of : 69 Report #: [id number] THIS REPORT FOR: cc: [facility] - Clinic physician unknown [facility] - Clinic physician unknown Mindy Heller MD ~ CC: [facility] unknown Giuseppe Matos DATE OF SERVICE: 08/21/2019 REASON FOR CONSULTATION: Elevated creatinine. REASON FOR THE PRESENTATION: Chest pain. HISTORY OF PRESENT ILLNESS: A 54-year-old with past medical history of cardiomyopathy, methamphetamine abuse, heart failure with an ejection fraction of around 15%. He presented yesterday reporting that he has been having some chest pain that responded to sublingual nitroglycerin. The patient was admitted to further evaluate his chest pain. Nuclear scan was not remarkable. His creatinine on presentation was 1.6. I was asked to evaluate and assist with his kidney issues. From the renal perspective, the patient denies any prior knowledge of kidney disease. He denies nonsteroidal anti-inflammatory medications. The patient's creatinine has been fluctuating anywhere from 1.1-2.0 all through the year of 2019. MEDICATIONS: 1. Omnicef. 2. Atorvastatin. 3. Carvedilol. 4. Spironolactone. 5. Losartan. 6. Torsemide. PAST MEDICAL HISTORY: Extensive and includes the followin. Chronic kidney disease. 2. Cardiomyopathy post-AICD. 3. Atrial fibrillation. 4. Coronary artery disease, post-4 stents. 5. Methamphetamine abuse. 6. Hypertension. 7. SVT. 8. Hyperlipidemia. 9. DVT. ALLERGIES: BENADRYL. [facility] [address] [place] [address] CONSULTATION Name: SOPHIEBRUCE DILCIA Room #: 219-P [facility] ..#: [id number] Admission: 08/19/19 Attend Phys: Giuseppe Matos MD Discharge: 08/21/19 Date of : 69 Report #: [id number] SOCIAL HISTORY: Significant for methamphetamine abuse. FAMILY HISTORY: He denies any knowledge of any medical problems in his family. REVIEW OF SYSTEMS: GENERAL: No fever or chills. CARDIOVASCULAR: Chest pain. PULMONARY: No cough or hemoptysis. GASTROINTESTINAL: No nausea or vomiting. GENITOURINARY: No frequency, no urgency. MUSCULOSKELETAL: No back pain, no morning stiffness. PHYSICAL EXAMINATION: VITAL SIGNS: Blood pressure is 112/66, temperature is 36.7. HEAD AND NECK: No jugular venous distention. CHEST: No crackles. CARDIOVASCULAR: No rub detected. ABDOMEN: Soft. EXTREMITIES: Lower extremities, no edema. LABORATORY DATA: Values reviewed. Creatinine was 1.6 yesterday. No creatinine is available today. UA revealed +2 protein with what seems to be red blood cells. He previously had images of his abdomen back in 2013. No recent kidney images. IMPRESSION AND PLAN: 1. Chronic kidney disease. 2. Chest pain in a patient with known coronary artery disease. 3. Cardiomyopathy with ejection fractions of around 15%. 4. Substance abuse. The patient's creatinine values in the last year is consistent with chronic kidney disease due to his current heart issues. Main goal of therapy is to augment his heart condition with appropriate medication including an angiotensin receptor fallon. I would keep the patient on the current dose of diuretics including torsemide and spironolactone. Avoid nephrotoxins. Follow urine output. Cardiac workup. [address] [place] [address] CONSULTATION Name: BRUCE BARRIOS Room #: 219-P [facility] M.R.#: [id number] Admission: 08/19/19 Attend Phys: Giuseppe Matos MD Discharge: 08/21/19 Date of : 69 Report #: [id number] It is not unusual for people with his current heart condition to have a fluctuating creatinine value. <ELECTRONICALLY SIGNED> By: Mindy Heller MD 08/27/19 0918 0731 [id number] Mindy Heller MD /nt
== END 2019-08-21 14:25 | disposition home or self-care (01) | DRG 303 ==
LOC: ER 04:40 → 2N 05:34 → EROBS 05:34 → 2N 17:44
PROVIDERS: Hospitalist; Nurse Practitioner; Nurse Practitioner Family; Student in an Organized Health Care Education/Training Program; ADMIT Internal Medicine; ATTEND Internal Medicine
DX: I25.110 Atherosclerotic heart disease of native coronary artery with unstable angina pectoris (principal); N17.9 Acute kidney failure, unspecified; J44.1 Chronic obstructive pulmonary disease with (acute) exacerbation; I50.40 Unspecified combined systolic (congestive) and diastolic (congestive) heart failure; E44.0 Moderate protein-calorie malnutrition; I13.0 Hypertensive heart and chronic kidney disease with heart failure and stage 1 through stage 4 chronic kidney disease, or unspecified chronic kidney disease; F19.10 Other psychoactive substance abuse, uncomplicated; E78.5 Hyperlipidemia, unspecified; N18.9 Chronic kidney disease, unspecified; I25.5 Ischemic cardiomyopathy; I48.0 Paroxysmal atrial fibrillation; F17.210 Nicotine dependence, cigarettes, uncomplicated; E83.42 Hypomagnesemia; Z68.29 Body mass index [BMI] 29.0-29.9, adult; Z71.6 Tobacco abuse counseling; Z79.82 Long term (current) use of aspirin; Z79.899 Other long term (current) drug therapy; Z86.718 Personal history of other venous thrombosis and embolism; Z95.5 Presence of coronary angioplasty implant and graft; I25.2 Old myocardial infarction; Z88.8 Allergy status to other drugs, medicaments and biological substances
CPT/HCPCS: 10081

== ENCOUNTER 2019-09-08 08:00 | Emergency (ER) | payer OTHER ==
[~2019-09-08] VITALS: Ht 180.3 cm; Wt 104.3 kg
[2019-09-08 08:22] LABS: ABSOLUTE NEUTROPHILS 6.3 thou/uL (1.4-8.2); BASOPHILS 1.3 % (0.0-2.0); EOSINOPHILS 2.7 % (0.0-3.0); HEMATOCRIT 47.4 % (42.0-52.0); HEMOGLOBIN 15.5 gm/dL (14.0-18.0); LYMPHOCYTES 22.2 % (24.0-44.0); MCH 31.1 pg (26.0-34.0); MCHC 32.7 g/dL (28.0-37.0); MCV 94.9 fL (80.0-100.0); MONOCYTES 7.5 % (1.0-8.0); PLATELET COUNT 247 thou/uL (150-400); POLYS 66.3 % (36.0-66.0); RDW 17.7 % (10.5-14.5); WBC 9.4 thou/uL (4.0-11.0)
[2019-09-08 08:54] LABS: ANION GAP 10 mmol/L (7-16); BUN 21 mg/dL (7-18); CALCIUM 8.5 mg/dL (8.5-10.1); CHLORIDE 101 mmol/L (98-107); CO2 27 mmol/L (21-32); CREATININE 1.2 mg/dL (0.7-1.3); GLUCOSE 194 mg/dL (74-106); POTASSIUM 3.6 mmol/L (3.5-5.1); SODIUM 138 mmol/L (136-145)
[2019-09-08 09:02] LABS: AMP/METHAMP POSITIVE (Negative); BARBITURATES Negative (Negative); BENZODIAZEPINES Negative (Negative); COCAINE Negative (Negative); METHADONE Negative (Negative); OPIATES Negative (Negative); PCP Negative (Negative)
[2019-09-08 09:04] LABS: TROPONIN-I <0.06 ng/mL (<0.06)
[2019-09-08 12:34] VITALS: BP 146/92
--- NOTE | 2019-09-09 07:47 | EKG ---
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[employer] : [id number] Requested By: Abisai Arguelles Order Number: [id number] MD: Srinivas Navarro Measurements Intervals [place] Rate: 99 P: 101 NM: 118 QRS: -63 QRSD: 123 T: 188 QT: 399 QTc: 513 Interpretive Statements Sinus rhythm Multiple ventricular premature complexes Biatrial enlargement Left bundle branch block Compared to ECG 08/19/2019 04:42:33 Ventricular premature complex(es) now present Electronically Signed On 09-09-2019 7:46:50 CDT by Srinivas Navarro [email or web address] <ELECTRONICALLY SIGNED> By: Srinivas Navarro MD, [facility] 09/09/19 0746 08 0802 Srinivas Navarro MD, [facility] /EPI
== END 2019-09-08 12:34 | disposition home or self-care (01) ==
LOC: ER 08:00
PROVIDERS: Emergency Medicine
DX: R07.89 Other chest pain (principal); F15.10 Other stimulant abuse, uncomplicated; I25.2 Old myocardial infarction; I10 Essential (primary) hypertension; I48.91 Unspecified atrial fibrillation; E78.5 Hyperlipidemia, unspecified; I25.10 Atherosclerotic heart disease of native coronary artery without angina pectoris; F17.210 Nicotine dependence, cigarettes, uncomplicated; Z95.5 Presence of coronary angioplasty implant and graft; Z86.718 Personal history of other venous thrombosis and embolism; Z79.899 Other long term (current) drug therapy; Z79.82 Long term (current) use of aspirin; Z88.8 Allergy status to other drugs, medicaments and biological substances